=== PATIENT | female | born 1985 | race Caucasian/White ===

== ENCOUNTER 2022-10-29 14:09 | Emergency (ER) | payer MEDICAID, SELFPAY ==
[2022-10-29 14:13] VITALS: BP 152/85; PULSE 98; RESP 24; TEMP 35.8; O2SAT 99; BMI 51.7
--- NOTE | 2022-10-29 14:29 | ED.GENADULT ---
HPI - General Adult General Chief complaint: Dental/Oral/Mouth Injury/Pain Stated complaint: Pain in right cheek bone down to the jaw Time Seen by Provider: 10/29/22 14:11 History of Present Illness HPI narrative: Patient is a 37 year white female has had longstanding tooth pain she has pain in her right upper tooth and it has affected she feels inner cheek as well feels a little bit in her lateral cheek and upper jaw no redness or vehicle swelling. No neck stiffness patient has had difficulty getting transportation get to a dentist. She plans on doing that in the near future Related Data Home Medications Medication Instructions Recorded Confirmed acetaminophen 500 mg tablet 1,000 mg PO Q6H PRN 05/10/22 05/10/22 (Tylenol Extra Strength) ibuprofen 200 mg capsule 600 mg PO Q6H PRN 05/10/22 05/10/22 Previous Rx's Medication Instructions Recorded ketorolac 10 mg tablet 10 mg PO Q8H 2 days #6 tabs 10/29/22 Allergies Allergy/AdvReac Type Severity Reaction Status Date / Time metformin Allergy Gastrointestinal Verified 05/10/22 14:26 Upset Review of Systems Status of ROS: Reports: 6 or more systems reviewed and unremarkable except as noted in History and below [facility] Medical History Abdominal pain Acute medial meniscal injury of knee (09/2016) Anxiety and depression Bronchitis Cellulitis Degeneration of intervertebral disc of lumbar region (06/25/14) 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 Dysfunctional uterine bleeding Gastroesophageal reflux disease without esophagitis (08/28/14) Herniated lumbar intervertebral disc (06/25/14) Hidradenitis suppurativa (12/31/15) Hypertension (08/28/14) Migraine headache Morbid obesity with body mass index (BMI) of 50.0 to 59.9 in adult (10/03/12) Pain of right hip Polycystic ovary syndrome Prepatellar bursitis of right knee Right knee sprain Strain of muscle and tendon of back wall of thorax, subsequent encounter Subcutaneous nodule of abdominal wall Surgical History History of carpal tunnel surgery of left wrist (01/05/16) History of dilation and curettage (2010) History of total right hip replacement (12/08/14) Status post lateral meniscectomy of left knee (10/21/16) Family History Mother Diabetes High blood pressure Maternal Grandmother Diabetes Ovarian cancer Social History Smoking Status: Current every day smoker What tobacco products do you use: cigarettes Smoking packs per day: 0.5 Smoking cigarettes per day: 10.0 Do you use any of these nicotine containing products: None Second hand tobacco smoke exposure: No How often do you have a drink containing alcohol: never AUDIT-C Alcohol total score: 0 Non-prescribed substance use: former substance user Exam Narrative: Exam Narrative: Objective: Mild redness around the right upper posterior tooth, no vehicle cellulitis noted no pharyngeal cellulitis. Neck is supple nontender Const: Vital Signs, click to edit/add: Vital Signs - 24 hr 10/29/22 14:13 Temperature 96.4 F L Pulse Rate [Pulse Oximeter] 98 Respiratory Rate 24 Blood Pressure [Ri t Upper Arm] 152/85 H Pulse Oximetry 99 Oxygen Delivery Me thod Room Air Course Vital Signs Vital signs: Initial Vital Signs Temperature 96.4 F L 10/29/22 14:13 Temperature Source Temporal Artery Scan 10/29/22 14:13 Pulse Rate 98 10/29/22 14:13 Respiratory Rate 24 10/29/22 14:13 Blood Pressure 152/85 H 10/29/22 14:13 Blood Pressure Mean 107 10/29/22 14:13 Pulse Oximetry 99 10/29/22 14:13 Oxygen Delivery Method 10/29/22 14:13 Vital Signs Temperature 96.4 F L 10/29/22 14:13 Pulse Rate 98 10/29/22 14:13 Respiratory Rate 24 10/29/22 14:13 Blood Pressure 152/85 H 10/29/22 14:13 Pulse Oximetry 99 10/29/22 14:13 Oxygen Delivery Method 10/29/22 14:13 Temperature 96.4 F L 10/29/22 14:13 Pulse Rate 98 10/29/22 14:13 Respiratory Rate 24 10/29/22 14:13 Blood Pressure 152/85 H 10/29/22 14:13 Pulse Oximetry 99 10/29/22 14:13 Oxygen Delivery Method 10/29/22 14:13 Medical Decision Making MDM Narrative Medical decision making narrative: Patient has had concerns about her teeth for a good period of time, at this point may have a dental infection, will cover with penicillin Bicillin IM and also Toradol orally. Will give toward some Toradol for home. Rest, light activity warm pack to the cheek, return if problems or concerns. Recommend dental follow-up in the next couple of days Discharge Plan Discharge Clinical Impression: Pain in tooth Patient Disposition: Home, Self-Care Condition: Stable Additional Instructions: Light activity warm pack to the cheek as needed, Toradol as needed, may use Tylenol as well. Do not use Aleve or Advil when using the Toradol. Follow-up with dentist in the next couple of days Activity Level: Light activity Discharge Diet: Regular Prescriptions: New ketorolac 10 mg tablet 10 mg PO Q8H 2 Days Qty: 6 0RF Rx Instructions: To use any ibuprofen or Aleve when using the Toradol No Action ibuprofen 200 mg capsule 600 mg PO Q6H PRN acetaminophen [Tylenol Extra Strength] 500 mg tablet 1,000 mg PO Q6H PRN Follow Up/Referrals: Provider,Not a Local [Primary Care Provider] - Stand Alone Forms: [employer] Info Instructions
[2022-10-29] MEDS: KETOROLAC 10 MG TABLET PO (14:36)
== END 2022-10-29 14:53 | disposition home or self-care (01) ==
LOC: ED 14:35
PROVIDERS: Emergency Provider Family Medicine
DX: K08.89 Other specified disorders of teeth and supporting structures (principal)
CPT/HCPCS: 96372; 99283; A9270; J0558

== ENCOUNTER 2023-05-30 21:52 | Emergency (ER) | payer MEDICAID, SELFPAY ==
[2023-05-30 22:10] VITALS: BP 175/95; PULSE 102; TEMP 36.1; O2SAT 98
[2023-05-30 22:15] VITALS: RESP 20
--- NOTE | 2023-05-30 23:01 | ED.GENADULT ---
HPI - General Adult General Chief complaint: Dental/Oral/Mouth Injury/Pain Stated complaint: Tooth pain Time Seen by Provider: 05/30/23 22:47 History of Present Illness HPI narrative: Broke tooth 1 week ago- right upper tooth, stated today tooth pain 10 and is radiating up in sinus cavity. Took Tylenol and ibuprofen a couple hours ago. Per pt dentist told her something was wrong with her root of tooth 38-year-old woman here with concern of tooth pain. She says that has concerns due to the roots that are growing into her right sinuses as described to her. She is worried she might have an infection there. Aggravated this tooth/cracked about a week ago on the right upper dentition and today just really flared. Radiating up into her right maxillary area. Has not had any fever drainage. Seen for dental issue in October of this year. Related Data Home Medications Medication Instructions Recorded Confirmed acetaminophen 500 mg tablet 1,000 mg PO Q6H PRN 05/10/22 05/10/22 (Tylenol Extra Strength) ibuprofen 200 mg capsule 600 mg PO Q6H PRN 05/10/22 05/10/22 Previous Rx's Medication Instructions Recorded ketorolac 10 mg tablet 10 mg PO Q8H 2 days #6 tabs 10/29/22 Allergies Allergy/AdvReac Type Severity Reaction Status Date / Time metformin Allergy Gastrointestinal Verified 05/30/23 22:14 Upset Review of Systems Status of ROS: Reports: 6 or more systems reviewed and unremarkable except as noted in History and below [facility] Medical History 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 ?M23.301 - Other meniscus derangements, unspecified lateral meniscus, left knee (ICD-10) Subcutaneous nodule of abdominal wall ?R22.2 - Localized swelling, mass and lump, trunk (ICD-10) Prepatellar bursitis of right knee ?M70.41 - Prepatellar bursitis, right knee (ICD-10) Polycystic ovary syndrome ?E28.2 - Polycystic ovarian syndrome (ICD-10) Morbid obesity with body mass index (BMI) of 50.0 to 59.9 in adult (10/03/12) ?E66.01 - Morbid (severe) obesity due to excess calories (ICD-10) ?Z68.43 - Body mass index [BMI] 50.0-59.9, adult (ICD-10) Migraine headache ?G43.909 - Migraine, unspecified, not intractable, without status migrainosus (ICD-10) Hypertension (08/28/14) ?I10 - Essential (primary) hypertension (ICD-10) Hidradenitis suppurativa (12/31/15) ?L73.2 - Hidradenitis suppurativa (ICD-10) Herniated lumbar intervertebral disc (06/25/14) ?M51.26 - Other intervertebral disc displacement, lumbar region (ICD-10) Gastroesophageal reflux disease without esophagitis (08/28/14) ?K21.9 - Gastro-esophageal reflux disease without esophagitis (ICD-10) Dysfunctional uterine bleeding ?N93.8 - Other specified abnormal uterine and vaginal bleeding (ICD-10) Degeneration of intervertebral disc of lumbar region (06/25/14) ?M51.36 - Other intervertebral disc degeneration, lumbar region (ICD-10) Anxiety and depression ?F41.9 - Anxiety disorder, unspecified (ICD-10) ?F32.A - Depression, unspecified (ICD-10) Surgical History History of loop electrical excision procedure (LEEP) ?Z98.890 - Other specified postprocedural states (ICD-10) Status post lateral meniscectomy of left knee (10/21/16) ?Z98.890 - Other specified postprocedural states (ICD-10) History of carpal tunnel surgery of left wrist (01/05/16) ?Z98.890 - Other specified postprocedural states (ICD-10) History of total right hip replacement (12/08/14) ?Z96.641 - Presence of right artificial hip joint (ICD-10) History of dilation and curettage (2010) ?Z98.890 - Other specified postprocedural states (ICD-10) Family History Mother Diabetes High blood pressure Depression Anxiety Maternal Grandmother Diabetes Ovarian cancer Other Pancreatic cancer Skin cancer Social History Narrative: Does not drink alcohol Does not exercise Single, unemployed, no kids Tobacco abuse- 10/day, 20 pack years Smoking Status: Current every day smoker What tobacco products do you use: cigarettes Smoking packs per day: 0.5 Smoking cigarettes per day: 10.0 Do you use any of these nicotine containing products: None Second hand tobacco smoke exposure: No How often do you have a drink containing alcohol: never AUDIT-C Alcohol total score: 0 Non-prescribed substance use: former substance user Exam Narrative: Exam Narrative: Pleasant. Clearly very uncomfortable. Neck is supple without lymphadenopathy. Oropharynx with some dentition in disrepair. Gingival inflammation. Tooth in question number 6 does appear to be cracked with exposed dentin at least, possibly pulp. There is no surrounding focal erythema or swelling. No erythema or swelling of the face. Const: Vital Signs, click to edit/add: Vital Signs - 24 hr 05/30/23 22:10 05/30/23 22:15 Temperature 97 F L Pulse Rate [Pulse Oximeter] 102 H Respiratory Rate 20 Blood Pressure [Ri ght Upper Arm] 175/95 H Pulse Oximetry 98 Oxygen Delivery Me thod Room Air Documenting provider has reviewed patient's vital signs: yes Course Vital Signs Vital signs: Initial Vital Signs Temperature 97 F L 05/30/23 22:10 Temperature Source Temporal Artery Scan 05/30/23 22:10 Pulse Rate 102 H 05/30/23 22:10 Pulse Rhythm Regular 05/30/23 22:10 Blood Pressure 175/95 H 05/30/23 22:10 Blood Pressure Mean 121 H 05/30/23 22:10 Pulse Oximetry 98 05/30/23 22:10 Oxygen Delivery Method Room Air 05/30/23 22:10 Vital Signs Temperature 97 F L 05/30/23 22:10 Pulse Rate 102 H 05/30/23 22:10 Blood Pressure 175/95 H 05/30/23 22:10 Pulse Oximetry 98 05/30/23 22:10 Oxygen Delivery Method Room Air 05/30/23 22:10 Temperature 97 F L 05/30/23 23:56 Pulse Rate 102 H 05/30/23 23:56 Respiratory Rate 20 05/30/23 23:56 Blood Pressure 175/95 H 05/30/23 23:56 Pulse Oximetry 98 05/30/23 22:10 Oxygen Delivery Method Room Air 05/30/23 22:10 Medical Decision Making MDM Narrative Medical decision making narrative: She would love some relief of pain if possible. There may be an infection here though I think more likely it is irritated nerve. Did propose dental injection for more immediate relief of pain which she readily accepted. Did place in alveolar and then buccal block with 1 mL of Marcaine each. Achieved excellent control of tooth pain. Radha was relieved. See patient discharge plan Medical Records Medical records reviewed: Yes I reviewed the patient's medical records Discharge Plan Discharge Clinical Impression: Gingivitis, Dental erosion extending into pulp, Pain, dental Patient Disposition: Home, Self-Care Condition: Improved Additional Instructions: I am happy you're feeling better. Check out at [facility] or maybe another pharmacy whether not they have [employer] products. These can include temporary fillings that you can apply yourself or brush on varnishes that I think will help you with the discomfort. You might be able to buy this online as well. See handout of dental clinics/emergency services. Can take up to 800 mg of ibuprofen or up to 1000 mg of acetaminophen per dose. Alternative to the ibuprofen might be up to 500 mg naproxen 2 times daily. Continue to focus on hydration. Might want to do this with a straw. Doon and penicillin from [facility]. Remember that each tablet of Doon contains 325 mg of acetaminophen. You can take ibuprofen or naproxen with the Doon. Take the penicillin for 8 days Prescriptions: No Action ibuprofen 200 mg capsule 600 mg PO Q6H PRN acetaminophen [Tylenol Extra Strength] 500 mg tablet 1,000 mg PO Q6H PRN ketorolac 10 mg tablet 10 mg PO Q8H 2 Days Qty: 6 0RF Rx Instructions: To use any ibuprofen or Aleve when using the Toradol Follow Up/Referrals: Provider,Not a Local [Primary Care Provider] - Stand Alone Forms: [employer] Info Instructions
[2023-05-30] MEDS: BUPIVACAINE 0.25% 30 ML 5 ML INJECTION (23:20)
[2023-05-30 23:56] VITALS: BP 175/95; PULSE 102; RESP 20; TEMP 36.1
== END 2023-05-30 23:56 | disposition home or self-care (01) ==
PROVIDERS: Emergency Provider Family Medicine
DX: K05.10 Chronic gingivitis, plaque induced (principal); K04.99 Other diseases of pulp and periapical tissues
CPT/HCPCS: 64450; 99283; 99284; J0665

== ENCOUNTER 2023-12-20 05:37 | Emergency (ER) | payer MEDICAID, SELFPAY ==
[2023-12-20 05:43] VITALS: BP 160/98; PULSE 98; RESP 18; TEMP 36.7; O2SAT 97; BMI 45.8
--- NOTE | 2023-12-20 05:51 | ED_ITS ---
HPI - Dental/Oral General Time Seen by Provider: 05:51 Date Seen: 12/20/23 Chief complaint: Dental/Oral/Mouth Injury/Pain Stated complaint: bleeding mouth Time Seen by Provider: 12/20/23 05:51 Source: patient and RN notes reviewed Mode of arrival: ambulatory Limitations: no limitations History of Present Illness HPI Narrative: This 38-year-old female is coming in after she noted bleeding and clots coming from her upper left mouth. She was performing oral sex on her boyfriend when she noted bleeding. She shows me a picture of bloody in on a clot on some tissue. The bleeding has now stopped. She feels that she maybe broke this tooth a little bit more as she is feeling it with her tongue. She states she has had hip replacement, she is worried about sepsis and infection. She is not been to a dentist for quite some time. She has had no baseline fevers or pain. There is maybe now a little discomfort. No blood thinners. Related Data Home Medications Medication Instructions Recorded Confirmed acetaminophen 500 mg tablet 1,000 mg PO Q6H PRN 05/10/22 05/10/22 (Tylenol Extra Strength) ibuprofen 200 mg capsule 600 mg PO Q6H PRN 05/10/22 05/10/22 Previous Rx's Medication Instructions Recorded ketorolac 10 mg tablet 10 mg PO Q8H 2 days #6 tabs 10/29/22 penicillin V potassium 500 mg 500 mg PO TID #21 tabs 12/20/23 tablet Allergies Allergy/AdvReac Type Severity Reaction Status Date / Time metformin Allergy Gastrointestinal Verified 05/30/23 22:14 Upset Review of Systems Narrative: As per HPI. 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 ?M23.301 - Other meniscus derangements, unspecified lateral meniscus, left knee (ICD-10) Subcutaneous nodule of abdominal wall ?R22.2 - Localized swelling, mass and lump, trunk (ICD-10) Prepatellar bursitis of right knee ?M70.41 - Prepatellar bursitis, right knee (ICD-10) Polycystic ovary syndrome ?E28.2 - Polycystic ovarian syndrome (ICD-10) Morbid obesity with body mass index (BMI) of 50.0 to 59.9 in adult (10/03/12) ?E66.01 - Morbid (severe) obesity due to excess calories (ICD-10) ?Z68.43 - Body mass index [BMI] 50.0-59.9, adult (ICD-10) Migraine headache ?G43.909 - Migraine, unspecified, not intractable, without status migrainosus (ICD-10) Hypertension (08/28/14) ?I10 - Essential (primary) hypertension (ICD-10) Hidradenitis suppurativa (12/31/15) ?L73.2 - Hidradenitis suppurativa (ICD-10) Herniated lumbar intervertebral disc (06/25/14) ?M51.26 - Other intervertebral disc displacement, lumbar region (ICD-10) Gastroesophageal reflux disease without esophagitis (08/28/14) ?K21.9 - Gastro-esophageal reflux disease without esophagitis (ICD-10) Dysfunctional uterine bleeding ?N93.8 - Other specified abnormal uterine and vaginal bleeding (ICD-10) Degeneration of intervertebral disc of lumbar region (06/25/14) ?M51.36 - Other intervertebral disc degeneration, lumbar region (ICD-10) Anxiety and depression ?F41.9 - Anxiety disorder, unspecified (ICD-10) ?F32.A - Depression, unspecified (ICD-10) Surgical History History of loop electrical excision procedure (LEEP) ?Z98.890 - Other specified postprocedural states (ICD-10) Status post lateral meniscectomy of left knee (10/21/16) ?Z98.890 - Other specified postprocedural states (ICD-10) History of carpal tunnel surgery of left wrist (01/05/16) ?Z98.890 - Other specified postprocedural states (ICD-10) History of total right hip replacement (12/08/14) ?Z96.641 - Presence of right artificial hip joint (ICD-10) History of dilation and curettage (2010) ?Z98.890 - Other specified postprocedural states (ICD-10) Family History Mother Diabetes High blood pressure Depression Anxiety Maternal Grandmother Diabetes Ovarian cancer Other Pancreatic cancer Skin cancer Social History Narrative: Does not drink alcohol Does not exercise Single, unemployed, no kids Tobacco abuse- 10/day, 20 pack years Smoking Status: Current every day smoker What tobacco products do you use: cigarettes Smoking packs per day: 0.5 Smoking cigarettes per day: 10.0 Do you use any of these nicotine containing products: None Second hand tobacco smoke exposure: No How often do you have a drink containing alcohol: never AUDIT-C Alcohol total score: 0 Non-prescribed substance use: former substance user Exam Const: Vital Signs, click to edit/add: Vital Signs - 24 hr 12/20/23 05:43 Temperature 98.0 F Pulse Rate [Pulse Oximeter] 98 Respiratory Rate 18 Blood Pressure [Le ft Upper Arm] 160/98 H Pulse Oximetry 97 Oxygen Delivery Me thod Room Air Patient is alert, interactive, no apparent distress, very pleasant. Face atraumatic. Lips are normal. Oropharynx reveals normal tongue. She has multiple broken eroded teeth. On the left upper mouth between the molars on the outside aspect there is a clot. There is no active bleeding. It looks like there is erosion into the molar in front. There is no surrounding mucosal changes or erythema or swelling. Documenting provider has reviewed patient's vital signs: yes Course Course ED Course: Patient and I reviewed that there is no apparent infection at this time. Should she start noticing increased swelling or pain, would recommend antibiotic use. She is at risk for dental infections given the eroded in broken nature of her teeth. I will send an antibiotic in for her should she start to develop swelling and pain. If this tooth keeps bleeding, she is going to need to see a dentist. Vital Signs Vital signs: Initial Vital Signs Temperature 98.0 F 12/20/23 05:43 Temperature Source Temporal Artery Scan 12/20/23 05:43 Pulse Rate 98 12/20/23 05:43 Pulse Rhythm Regular 12/20/23 05:43 Respiratory Rate 18 12/20/23 05:43 Blood Pressure 160/98 H 12/20/23 05:43 Blood Pressure Mean 118 H 12/20/23 05:43 Blood Pressure Position Sitting 12/20/23 05:43 Pulse Oximetry 97 05/01/24 05:43 Oxygen Delivery Method Room Air 12/20/23 05:43 Vital Signs Temperature 98.0 F 12/20/23 05:43 Pulse Rate 98 12/20/23 05:43 Respiratory Rate 18 12/20/23 05:43 Blood Pressure 160/98 H 12/20/23 05:43 Pulse Oximetry 97 12/20/23 05:43 Oxygen Delivery Method Room Air 12/20/23 05:43 Temperature 98.0 F 12/20/23 05:43 Pulse Rate 98 12/20/23 05:43 Respiratory Rate 18 12/20/23 05:43 Blood Pressure 160/98 H 12/20/23 05:43 Pulse Oximetry 97 12/20/23 05:43 Oxygen Delivery Method Room Air 12/20/23 05:43 Discharge Plan Discharge Clinical Impression: Bleeding from mouth Patient Disposition: Home, Self-Care Condition: Stable Instructions: Dental Abscess (ED) Additional Instructions: Handout provided on dental abscess for you to review signs and symptoms of this. I have sent an antibiotic to be used should you start having increasing dental pain or swelling around the area as that could signify a dental infection. You really do need to get to a dentist as soon as possible. If this area continues to bleed, you are going to need to see a dentist. I would have you stay on clear liquids for the next 24 hours to give this area of your mouth a chance to heal hence stop bleeding. After that, can do soft foods for the next couple of days. Prescriptions: New penicillin V potassium 500 mg tablet 500 mg PO TID Qty: 21 0RF No Action ibuprofen 200 mg capsule 600 mg PO Q6H PRN acetaminophen [Tylenol Extra Strength] 500 mg tablet 1,000 mg PO Q6H PRN ketorolac 10 mg tablet 10 mg PO Q8H 2 Days Qty: 6 0RF Rx Instructions: To use any ibuprofen or Aleve when using the Toradol Follow Up/Referrals: Provider,Not a Local [Primary Care Provider] - Stand Alone [facility]: [facility] Info Inst[facility]
--- NOTE | 2023-12-20 06:18 | PC.NURSE ---
pt requested a prescription for diflucan also be sent to pharmacy as she tends to get yeast infections with antibiotic use. also encouraged yogurt, probiotics.
== END 2023-12-20 06:18 | disposition home or self-care (01) ==
PROVIDERS: Emergency Provider Family Medicine
DX: K04.7 Periapical abscess without sinus (principal)
CPT/HCPCS: 99282

== ENCOUNTER 2024-03-06 08:34 | Outpatient (CLI) | payer MEDICAID, SELFPAY ==
[2024-03-06 12:01] LABS: Chlamydia DNA Amplified* NOT DETECTED (No Detected); GC DNA Amplified* NOT DETECTED (No Detected)
== END 2024-03-06 08:35 | disposition home or self-care (01) ==
PROVIDERS: Visit Provider Registered Nurse
DX: Z11.3 Encounter for screening for infections with a predominantly sexual mode of transmission (principal)
CPT/HCPCS: 86592; 86701; 86702; 86703; 86803; 87340; 87491; 87536; 87591

== ENCOUNTER 2024-03-28 16:08 | Emergency (ER) | payer MEDICAID, SELFPAY ==
[2024-03-28 16:11] VITALS: BP 154/74; PULSE 91; RESP 18; TEMP 36.4; O2SAT 97; BMI 45.8
--- NOTE | 2024-03-28 16:21 | CRLHL7_ITS ---
For Patients: As a result of the Cures Act, medical imaging exams and procedure reports are released immediately into your electronic medical record. You may view this report before your referring provider. If you have questions, please contact your health care provider. INDICATION: Left leg pelvic hip pain TECHNIQUE: Pelvis radiograph, Hip radiograph 3 views left COMPARISON: 05/10/2022 FINDINGS: Bone: No acute fractures or aggressive bone lesions are identified. Severe degenerative disc disease with vacuum phenomena seen at L4-5. Joint: A right total hip arthroplasty is present without interval change. The left hip joint is unremarkable. The visualized sacroiliac joints are unremarkable in appearance. The pubic symphysis is normal in appearance. Soft tissue: Unremarkable. The visualized bowel gas pattern of the pelvis is unremarkable in appearance. No radiopaque foreign bodies are seen. IMPRESSION: 1. No acute osseous injuries or abnormalities are noted. Dictated by Harinder Morales MD @ 03/28/2024 6:18:17 PM Dictated by: Harinder Morales MD @ 03/28/2024 18:18:24 (Electronically Signed)
--- NOTE | 2024-03-28 16:49 | ED.GENADULT ---
HPI - General Adult General Chief complaint: Extremity Pain/Injury, Lower Stated complaint: can't lift L leg Time Seen by Provider: 03/28/24 16:16 Source: patient Mode of arrival: ambulatory Limitations: no limitations History of Present Illness HPI narrative: 38-year-old female coming in today complaining of left hip pain. Uses the pain started yesterday. She denies any new physical activities. She denies any injury that she is aware of. She states that the pain is located wear the thigh needs to trunk, radiates down the front of the thigh. Does not reach the knee. Movement makes it worse, nothing seems to make it better. She denies any loss of bowel or bladder function. She denies any recent fevers or chills. No vomiting. She denies any back pain. She denies any trauma to the back. She describes it as a shooting pain. Patient states that she had a hip replacement on the right side in the past secondary to the joint being bone on bone. She is concerned that the same thing is happening to the left. 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 ?M23.301 - Other meniscus derangements, unspecified lateral meniscus, left knee (ICD-10) Subcutaneous nodule of abdominal wall ?R22.2 - Localized swelling, mass and lump, trunk (ICD-10) Prepatellar bursitis of right knee ?M70.41 - Prepatellar bursitis, right knee (ICD-10) Polycystic ovary syndrome ?E28.2 - Polycystic ovarian syndrome (ICD-10) Morbid obesity with body mass index (BMI) of 50.0 to 59.9 in adult (10/03/12) ?E66.01 - Morbid (severe) obesity due to excess calories (ICD-10) ?Z68.43 - Body mass index [BMI] 50.0-59.9, adult (ICD-10) Migraine headache ?G43.909 - Migraine, unspecified, not intractable, without status migrainosus (ICD-10) Hypertension (08/28/14) ?I10 - Essential (primary) hypertension (ICD-10) Hidradenitis suppurativa (12/31/15) ?L73.2 - Hidradenitis suppurativa (ICD-10) Herniated lumbar intervertebral disc (06/25/14) ?M51.26 - Other intervertebral disc displacement, lumbar region (ICD-10) Gastroesophageal reflux disease without esophagitis (08/28/14) ?K21.9 - Gastro-esophageal reflux disease without esophagitis (ICD-10) Dysfunctional uterine bleeding ?N93.8 - Other specified abnormal uterine and vaginal bleeding (ICD-10) Degeneration of intervertebral disc of lumbar region (06/25/14) ?M51.36 - Other intervertebral disc degeneration, lumbar region (ICD-10) Anxiety and depression ?F41.9 - Anxiety disorder, unspecified (ICD-10) ?F32.A - Depression, unspecified (ICD-10) Surgical History History of loop electrical excision procedure (LEEP) ?Z98.890 - Other specified postprocedural states (ICD-10) Status post lateral meniscectomy of left knee (10/21/16) ?Z98.890 - Other specified postprocedural states (ICD-10) History of carpal tunnel surgery of left wrist (01/05/16) ?Z98.890 - Other specified postprocedural states (ICD-10) History of total right hip replacement (12/08/14) ?Z96.641 - Presence of right artificial hip joint (ICD-10) History of dilation and curettage (2010) ?Z98.890 - Other specified postprocedural states (ICD-10) Family History Mother Diabetes High blood pressure Depression Anxiety Maternal Grandmother Diabetes Ovarian cancer Other Pancreatic cancer Skin cancer Social History Narrative: Does not drink alcohol Does not exercise Single, unemployed, no kids Tobacco abuse- 10/day, 20 pack years Smoking Status: Current every day smoker What tobacco products do you use: cigarettes Smoking packs per day: 0.5 Smoking cigarettes per day: 10.0 Do you use any of these nicotine containing products: None Second hand tobacco smoke exposure: No How often do you have a drink containing alcohol: never AUDIT-C Alcohol total score: 0 Non-prescribed substance use: former substance user service: No Exam Narrative: Exam Narrative: Obese, well-developed patient in no acute distress. Alert and oriented. Answers questions appropriately. Mood and affect are appropriate. Thoughts are goal oriented and rational. No tangential or magical thinking noted. Patient speaks in full sentences without needing to catch her breath. She does not appear ill or toxic. HEENT: Normocephalic atraumatic. Extraocular muscles are intact. Conjunctivae are moist without any icterus noted. Moist mucous membranes. Abdomen: Soft and nontender with normal bowel sounds. Extremities: Bilateral lower extremities are without edema. Normal DP and PT pulses. Patient has a negative straight leg test. She has some discomfort with any manipulation of the hip joint. No pain at the knee. Skin: Well perfused without any obvious rashes. Strength is 5/5 of the lower extremities. Reflexes are 2+ and symmetric at the knees. She is able to get up and down from the examination table without assistance. Const: Vital Signs, click to edit/add: Vital Signs - 24 hr 03/28/24 16:11 Temperature 97.5 F L Pulse Rate [Right Pulse Oximeter] 91 Respiratory Rate 18 Blood Pressure [Ri ght Forearm] 154/74 H Pulse Oximetry 97 Oxygen Delivery Me thod Room Air Course Course ED Course: Did go ahead and x-ray the left hip given her history: This was unremarkable. Discussed findings with patient. We discussed possibility of a pinched nerve versus musculoskeletal pain. Opted to try a Medrol Dosepak to see if this helps. Patient is agreement with this and had no other questions. Vital Signs Vital signs: Initial Vital Signs Temperature 97.5 F L 03/28/24 16:11 Temperature Source Temporal Artery Scan 03/28/24 16:11 Pulse Rate 91 03/28/24 16:11 Pulse Rhythm Regular 03/28/24 16:11 Pulse Strength 3+ Normal 03/28/24 16:11 Respiratory Rate 18 03/28/24 16:11 Blood Pressure 154/74 H 03/28/24 16:11 Blood Pressure Mean 100 03/28/24 16:11 Blood Pressure Position Sitting 03/28/24 16:11 Pulse Oximetry 97 03/28/24 16:11 Oxygen Delivery Method Room Air 03/28/24 16:11 Vital Signs Temperature 97.5 F L 03/28/24 16:11 Pulse Rate 91 03/28/24 16:11 Respiratory Rate 18 03/28/24 16:11 Blood Pressure 154/74 H 03/28/24 16:11 Pulse Oximetry 97 03/28/24 16:11 Oxygen Delivery Method Room Air 03/28/24 16:11 Temperature 97.5 F L 03/28/24 16:11 Pulse Rate 91 03/28/24 16:11 Respiratory Rate 18 03/28/24 16:11 Blood Pressure 154/74 H 03/28/24 16:11 Pulse Oximetry 97 03/28/24 16:11 Oxygen Delivery Method Room Air 03/28/24 16:11 Medical Decision Making MDM Narrative Medical decision making narrative: 38-year-old female with hip pain radiating down her leg. Treatment per above. Imaging Data xray hip: Attestation: I have reviewed the pertinent imaging results. Radiologist's impression: TECHNIQUE: Pelvis radiograph, Hip radiograph 3 views left COMPARISON: 05/10/2022 FINDINGS: Bone: No acute fractures or aggressive bone lesions are identified. Severe degenerative disc disease with vacuum phenomena seen at L4-5. Joint: A right total hip arthroplasty is present without interval change. The left hip joint is unremarkable. The visualized sacroiliac joints are unremarkable in appearance. The pubic symphysis is normal in appearance. Soft tissue: Unremarkable. The visualized bowel gas pattern of the pelvis is unremarkable in appearance. No radiopaque foreign bodies are seen. IMPRESSION: 1. No acute osseous injuries or abnormalities are noted. Discharge Plan Discharge Clinical Impression: Acute hip pain Patient Disposition: Home, Self-Care Condition: Stable Additional Instructions: Rest, altered activity to avoid activities that hurt the hip. Okay to take ibuprofen or Tylenol as needed/as directed. Prescriptions: New methylprednisolone [Medrol ([facility])] 4 mg tablets,dose pack See Rx Instructions .ROUTE .COMPLEX Qty: 21 0RF Rx Instructions: orally per package directions Follow Up/Referrals: Provider,Not a Local [Primary Care Provider] - Stand Alone Forms: [employer] Info Instructions
== END 2024-03-28 18:43 | disposition home or self-care (01) ==
PROVIDERS: Emergency Provider Family Medicine
DX: M25.552 Pain in left hip (principal)
CPT/HCPCS: 73502; 99283; 99284

== ENCOUNTER 2024-04-04 08:50 | Outpatient (CLI) | payer MEDICAID, SELFPAY | END 2024-04-04 08:51 | disposition home or self-care (01) | PROVIDERS: Visit Provider Registered Nurse | DX: Z00.00 Encounter for general adult medical examination without abnormal findings (principal); E11.40 Type 2 diabetes mellitus with diabetic neuropathy, unspecified; I10 Essential (primary) hypertension; E66.01 Morbid (severe) obesity due to excess calories | CPT/HCPCS: 80053; 84443 ==

== ENCOUNTER 2024-05-04 00:56 | Emergency (ER) | payer MEDICAID, SELFPAY ==
[2024-05-04] VITALS (9 sets, daily range): BP systolic 156; BP diastolic 98; PULSE 95–110; RESP 22; TEMP 35.9; O2SAT 92–98; BMI 47.3
--- NOTE | 2024-05-04 01:16 | ED_ITS ---
HPI - General Adult General Date Seen: 05/04/24 Chief complaint: Post Op Complication Stated complaint: pain in vaginal area Time Seen by Provider: 05/04/24 01:15 History of Present Illness HPI narrative: 39-year-old female with a history of type 2 diabetes, polycystic ovaries, elevated BMI, hypertension, hit retinitis a pretty 5, GERD, lumbar disc disease, vulvar intraepithelial neoplasia, anxiety/depression. Per ER triage note she had a wide local excision of her vulva done by Dr. Adames at [facility] 11 days ago on 04/23. She has been having postop pain that is been getting worse for the past couple of days and has now become unbearable. She has a follow-up scheduled with her surgeon at [facility] on Monday, but cannot make it until then because the pain is too severe. She says that she had a wide local incision of a precancerous lesion on her right labia. Apparently lesion was 2.5 cm diameter and she had additional margins larger than that that were excised. She was told by her doctor by phone call on Monday that they did get clear margins. She notes that for the 1st couple of days after the procedure her labia was not been really not painful. She started having some pain after that. She took all 10 of her prescribed postop oxycodone tablets and ran out probably a week ago. Since then she has actually had progressively worsening pain. The pain is very severe and burning. She notes that her labia has been swollen since the day of the surgery but is actually gotten more swollen. Feels hard. The incision is draining some brownish material. She initially says it is dark, but then she says it is light brown. Nothing green or yellow. No bleeding. She has not had any fever or chills. Urination hurts because when the urine splashes over the incision it causes pain. Bowel movements and defecation are not painful. She had a phone conversation with her gynecology team at [facility] on . She has a 2 week postop visit scheduled for Monday. I am not able to review all of the records from [facility] but I am able to see some of them using the [employer] website. It looks like she had surgery on 04/23. Op notes indicate that she had excision down into dermal tissue and then apparently had the wound closed with mattress sutures and then skin sutures using Vicryl. Related Data Previous Rx's ?Medication ?Instructions ?Recorded albuterol sulfate 90 mcg/actuation 2 puff inhalation Q6H PRN 04/04/24 aerosol inhaler shortness of breath or wheezing #8.5 grams blood pressure kit-extra large #1 ea 04/04/24 losartan 50 mg tablet 50 mg PO QDAY 90 days #90 tabs 04/04/24 amoxicillin 875 mg-potassium 1 tab PO BID PRN #14 tabs 05/04/24 clavulanate 125 mg tablet fluconazole 150 mg tablet 150 mg PO DAILY #1 tab 05/04/24 oxycodone 5 mg capsule 5 mg PO Q6H PRN pain #14 caps 05/04/24 Allergies Allergy/AdvReac Type Severity Reaction Status Date / Time metformin Allergy Gastrointestinal Verified 05/04/24 01:13 Upset [facility] Medical History Type 2 diabetes mellitus ?E11.9 - Type 2 diabetes mellitus without complications (ICD-10) 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 ?M23.301 - Other meniscus derangements, unspecified lateral meniscus, left knee (ICD-10) Subcutaneous nodule of abdominal wall ?R22.2 - Localized swelling, mass and lump, trunk (ICD-10) Prepatellar bursitis of right knee ?M70.41 - Prepatellar bursitis, right knee (ICD-10) Polycystic ovary syndrome ?E28.2 - Polycystic ovarian syndrome (ICD-10) Morbid obesity with body mass index (BMI) of 50.0 to 59.9 in adult (10/03/12) ?E66.01 - Morbid (severe) obesity due to excess calories (ICD-10) ?Z68.43 - Body mass index [BMI] 50.0-59.9, adult (ICD-10) Migraine headache ?G43.909 - Migraine, unspecified, not intractable, without status migrainosus (ICD-10) Hypertension (08/28/14) ?I10 - Essential (primary) hypertension (ICD-10) Hidradenitis suppurativa (12/31/15) ?L73.2 - Hidradenitis suppurativa (ICD-10) Herniated lumbar intervertebral disc (06/25/14) ?M51.26 - Other intervertebral disc displacement, lumbar region (ICD-10) Gastroesophageal reflux disease without esophagitis (08/28/14) ?K21.9 - Gastro-esophageal reflux disease without esophagitis (ICD-10) Dysfunctional uterine bleeding ?N93.8 - Other specified abnormal uterine and vaginal bleeding (ICD-10) Degeneration of intervertebral disc of lumbar region (06/25/14) ?M51.36 - Other intervertebral disc degeneration, lumbar region (ICD-10) Anxiety and depression ?F41.9 - Anxiety disorder, unspecified (ICD-10) ?F32.A - Depression, unspecified (ICD-10) Surgical History History of loop electrical excision procedure (LEEP) ?Z98.890 - Other specified postprocedural states (ICD-10) Status post lateral meniscectomy of left knee (10/21/16) ?Z98.890 - Other specified postprocedural states (ICD-10) History of carpal tunnel surgery of left wrist (01/05/16) ?Z98.890 - Other specified postprocedural states (ICD-10) History of total right hip replacement (12/08/14) ?Z96.641 - Presence of right artificial hip joint (ICD-10) History of dilation and curettage (2010) ?Z98.890 - Other specified postprocedural states (ICD-10) Family History Mother Diabetes High blood pressure Depression Anxiety Maternal Grandmother Diabetes Ovarian cancer Other Pancreatic cancer Skin cancer Social History Narrative: Does not drink alcohol Does not exercise Single, unemployed, no kids Tobacco abuse- 10/day, 20 pack years Smoking Status: Current every day smoker What tobacco products do you use: cigarettes Smoking packs per day: 0.5 Smoking cigarettes per day: 10.0 Do you use any of these nicotine containing products: None Second hand tobacco smoke exposure: No How often do you have a drink containing alcohol: never AUDIT-C Alcohol total score: 0 Non-prescribed substance use: former substance user Caffeine: Yes Little interest or pleasure in doing things: more than half the days Feeling down, depressed, or hopeless: several days service: No Exam Narrative: Exam Narrative: Constitutional: Appears well-developed . Heavyset. Uncomfortable and anxious. Speaking rapidly because of anxiety and pain. Alert. Conversant. Non toxic. HENT: Head: Atraumatic. Nose: Nose normal. Mouth/Throat: Oral mucosa is clear and moist. no trismus. Pharynx normal. Tonsils symmetric. No tonsillar enlargement, erythema, or exudate. Eyes: Conjunctivae normal. EOM normal. Pupils equal, round, and reactive to light. No scleral icterus. Neck: Normal range of motion. Neck supple. No tracheal deviation present. Cardiovascular: Normal rate, regular rhythm. No gallop. No friction rub. No murmur heard. Pulmonary/Chest: Effort normal. No stridor. No respiratory distress. No wheezes. No rales. No rhonchi . Abdominal: Soft. Bowel sounds normal. No distension. No mass. No tenderness. No rebound. No guarding. : Performed with female sludge control attendant. Vulva but generally normal. Labia majora appear normal. We gently retracted her labia majora to visualize her labia minora and vaginal introitus. She does have a postop incision on the right labia minora measuring approximately 5 cm. There appears to be several white Vicryl sutures holding the proximal 1 cm and the distal 2-3 cm and tacked. The central 2 cm appears to be dehisced. There is a roughly 1 x 2 cm oval/alejandrina shaped area of dehisced tissue. The base this is white with either purulent or possibly cauterized tissue or possibly granulation. We did obtain a wound culture from the area. There is a small amount of whitish drainage and a small amount of liquidy drainage on the labia which could be from the wound or could possibly be sweat other material. The right labia minora is very tender to palpation. It is mildly indurated. No palpable fluctuance. No crepitus or gas in the soft tissue. Remainder of the external vulva is normal. Perineum is normal. We did not perform an internal speculum exam. Musculoskeletal: RUE: Normal range of motion. No tenderness. No deformity LUE: Normal range of motion. No tenderness. No deformity RLE: Normal range of motion. No edema. No tenderness. No deformity LLE: Normal range of motion. No edema. No tenderness. No deformity Neurological: Alert and oriented to person, place, and time. Normal strength. CN II-VII intact. No sensory deficit. GCS eye subscore is 4. GCS verbal subscore is 5. GCS motor subscore is 6. Normal coordination Skin: Skin is warm and dry. No rash noted. No pallor. Normal capillary refill. Psychiatric: Normal mood. anxious due to pain. Very apprehensive for pelvic exam. Const: Vital Signs, click to edit/add: Vital Signs - 24 hr 05/04/24 01:00 05/04/24 02:36 05/04/24 02:47 Temperature 96.6 F L Pulse Rate 102 H 104 H Pulse Rate [Pulse Oximeter] 107 H Respiratory Rate 22 Blood Pressure [Ri ght Upper Arm] 156/98 H Pulse Oximetry 98 92 96 Oxygen Delivery Me thod Room Air 05/04/24 03:00 05/04/24 03:15 05/04/24 03:20 Temperature Pulse Rate 95 101 H 99 Pulse Rate [Pulse Oximeter] Respiratory Rate Blood Pressure [Ri ght Upper Arm] Pulse Oximetry 96 97 96 Oxygen Delivery Me thod 05/04/24 03:30 05/04/24 03:35 Temperature Pulse Rate 100 110 H Pulse Rate [Pulse Oximeter] Respiratory Rate Blood Pressure [Ri ght Upper Arm] Pulse Oximetry 96 95 Oxygen Delivery Me thod Room Air Course Vital Signs Vital signs: Initial Vital Signs Temperature 96.6 F L 05/04/24 01:00 Temperature Source Temporal Artery Scan 05/04/24 01:00 Pulse Rate 107 H 05/04/24 01:00 Respiratory Rate 05/04/24 01:00 Blood Pressure 156/98 H 05/04/24 01:00 Blood Pressure Mean 117 H 05/04/24 01:00 Blood Pressure Position Sitting 05/04/24 01:00 Pulse Oximetry 98 05/04/24 01:00 Oxygen Delivery Method Room Air 05/04/24 01:00 Vital Signs Temperature 96.6 F L 05/04/24 01:00 Pulse Rate 107 H 05/04/24 01:00 Respiratory Rate 22 05/04/24 01:00 Blood Pressure 156/98 H 05/04/24 01:00 Pulse Oximetry 98 05/04/24 01:00 Oxygen Delivery Method Room Air 05/04/24 01:00 Temperature 96.6 F L 05/04/24 01:00 Pulse Rate 110 H 05/04/24 03:35 Respiratory Rate 22 05/04/24 01:00 Blood Pressure 156/98 H 05/04/24 01:00 Pulse Oximetry 95 05/04/24 03:35 Oxygen Delivery Method Room Air 05/04/24 03:35 Medications Administered Medications: Generic Name Dose Route Start Last Admin Trade Name Freq PRN Reason Stop Dose Admin Fentanyl 50 mcg 05/04/24 01:48 05/04/24 02:24 Fentanyl 100 Mcg/2 Ml Inj IVP 05/04/24 01:49 50 mcg ONCE ONE Administration Lidocaine HCl 6 ml 05/04/24 01:49 05/04/24 02:24 Lidocaine Hcl 2 % Jelly (Top) Sterile TOPICAL 05/04/24 01:50 6 ml ONCE ONE Administration Midazolam HCl 1 mg 05/04/24 02:20 05/04/24 02:24 Midazolam Hcl 1 Mg/Ml Inj IVP 05/04/24 02:21 1 mg ONCE ONE Administration Discontinued Medications Generic Name Dose Route Start Last Admin Trade Name Freq PRN Reason Stop Dose Admin Midazolam HCl 1 mg 05/04/24 01:48 05/04/24 02:25 Midazolam Hcl 1 Mg/Ml Inj IM 05/04/24 01:49 Not Given ONCE ONE Medical Decision Making MDM Narrative Medical decision making narrative: 39-year-old female who is 10 days status post a wide local excision of a lesion from her lower right labia minora (apparently was precancerous, or possibly cancerous with clear margins) presenting to the ER today with a 5-7 day pattern of progressively worsening severe burning pain at the incision site. Differential is broad including possible wound infection, dehiscence, hematoma, other vaginal trauma, Cassi's, cellulitis, ingrown hair or skin abscess, among others. She was quite uncomfortable and anxious at presentation but after receiving fentanyl and Versed we were able to get a good external pelvic exam Clinical evaluation shows evidence for wound dehiscence. This affects the central 2 cm of the patient's wound, approximately. The top and bottom ends of the incision have been sutured and it appears that the sutures are holding together. The dehisced portion of the wound has a lot of adherent whitish material in the base which could be granulation tissue from healing or could represent possible infection. There is a little bit of induration of the right labia, which could also be infection or part of healing. I do not appreciate any palpable fluctuance and gentle pressure around the wound does not create any expression of pus through the dehisced wound. At this point no evidence for abscess. Also no evidence for any necrotizing infection or Cassi's gangrene at this point. Patient is afebrile. Discussed with the on-call manager state from [facility], Dr. Abraham, at approximately 3:00 a.m.. We discussed the patient's recent surgery, progressively worsening pain, and exam findings. He agrees with our plan to start the patient on antibiotics. She will need close outpatient follow-up with typically if the wound dehisce is, the surgeons would allow it to heal by secondary intention rather than reclosed it. She does not need transfer to [facility] for re-evaluation tonight. Discussed the plan of care with the patient and she is in agreement. Pain is improved (but of course not resolved) after meds given here in the ER. She feels comfortable discharging home. Initial plan was to give [facility] prescriptions for Augmentin and oxycodone. However she was not able to fill these prescriptions through in few meds for insurance reasons. Therefore we will send prescriptions to her pharmacy. She has been having trouble with [facility] lately so wants to switch. We sent prescriptions to [place] [facility] for oxycodone, Augmentin. Patient also reports that she gets yeast infections from any antibiotic. Will send a prescription for fluconazole that she can have p.r.n.. She will 0 up with her surgeons at [facility] on Monday. She will return to the ER or see her surgeons immediately if she has any worsening in her condition. Discharge Plan Discharge Clinical Impression: Dehiscence of wound, Cellulitis of labia Patient Disposition: Home, Self-Care Condition: Stable Instructions: Cellulitis (ED), Sitz Bath (DC) Additional Instructions: As we discussed, it looks like part of your incision has broken open. There may also be an infection or on the wound. Take the following steps: 1. Start on antibiotics tonight to treat for a possible infection around the wound. 2. Continue to do wound care and cleansing the wound 2-3 times per day. Soaking in the bath of would be effective. She can also rinse it with a shower. 3. Use the pain killers if needed for pain. Be careful with oxycodone because it causes dizziness, drowsiness, and can be addictive. 4. Please follow-up with her doctors at [facility] by Monday for a repeat examination. If your pain gets worse, if you have worsening swelling of your vulva or your wound, if you have fever or chills or other worsening symptoms, please come back to the ER right away. If you developed a yeast infection from the antibiotics, you can take fluconazole. I sent a prescription for this antifungal medication to [facility] for you to have if needed. Prescriptions: New fluconazole 150 mg tablet 150 mg PO DAILY Qty: 1 0RF amoxicillin-pot clavulanate 875-125 mg tablet 1 tab PO BID PRNQty: 14 0RF oxycodone 5 mg capsule 5 mg PO Q6H PRN (Reason: pain) Qty: 14 0RF No Action losartan 50 mg tablet 50 mg PO QDAY 90 Days Qty: 90 1RF (DME) blood pressure kit-extra large Kit See Rx Instructions .Route Qty: 1 0RF Rx Instructions: Please check blood pressure 3-4 times per week; or if you ever feel lightheaded or dizzy after starting new blood pressure medication. albuterol sulfate 90 mcg/actuation HFA aerosol inhaler 2 puff inhalation Q6H PRN (Reason: shortness of breath or wheezing) Qty: 8.5 1RF Follow Up/Referrals: Lina Lau, GENERAL SURGERY PHYSICIAN ASSISTANT [Primary Care Provider] - Stand Alone Forms: [employer] Info Instructions
[2024-05-04] MEDS: MIDAZOLAM HCL 1 MG/ML inj IVP (02:24)
[2024-05-04] MEDS: lidocaine HCL 2 % JELLY (TOP) STERILE 6 ML TOPICAL (02:24)
[2024-05-04] MEDS: fentaNYL 100 MCG/2 ML inj 50 MCG IVP (02:24)
== END 2024-05-04 04:13 | disposition home or self-care (01) ==
PROVIDERS: Emergency Provider Emergency Medicine; PCP Registered Nurse
DX: T81.30XA Disruption of wound, unspecified, initial encounter (principal); N76.2 Acute vulvitis
CPT/HCPCS: 87070; 87186; 94761; 96372; 96374; 99283; 99284; J2250; J3010

== ENCOUNTER 2024-06-11 07:32 | Emergency (ER) | payer MEDICAID, SELFPAY ==
[2024-06-11 07:37] VITALS: BP 167/106; PULSE 93; RESP 18; TEMP 36.6; O2SAT 98; BMI 47.3
--- NOTE | 2024-06-11 08:20 | ED.DENTAL ---
HPI - Dental/Oral General Date Seen: 06/11/24 Chief complaint: Dental/Oral/Mouth Injury/Pain Stated complaint: thinks tooth abscess face swollen Time Seen by Provider: 06/11/24 08:04 Source: patient Mode of arrival: ambulatory Limitations: no limitations History of Present Illness HPI Narrative: Patient is a 39-year-old female presenting for left facial swelling and dental pain. She has diffuse dental caries and states she has been unable to get her dentist because her car broke down and her dentist is in [place]. She has been dealing with these teeth issues for the past 6 months. She states she started having worsening pain last night with some swelling of the nose today the swelling was much worse. She is concerned she has an infection. Denies shortness of breath, difficulty swallowing, trismus. Denies any sensation of swelling underneath her tongue. Denies fevers or chills. No other concerns noted. Related Data Previous Rx's ?Medication ?Instructions ?Recorded albuterol sulfate 90 mcg/actuation 2 puff inhalation Q6H PRN 04/04/24 aerosol inhaler shortness of breath or wheezing #8.5 grams blood pressure kit-extra large #1 ea 04/04/24 losartan 50 mg tablet 50 mg PO QDAY 90 days #90 tabs 04/04/24 amoxicillin 875 mg-potassium 1 tab PO BID PRN #14 tabs 05/04/24 clavulanate 125 mg tablet fluconazole 150 mg tablet 150 mg PO DAILY #1 tab 05/04/24 oxycodone 5 mg capsule 5 mg PO Q6H PRN pain #14 caps 05/04/24 amoxicillin 875 mg-potassium 1 tab PO BID #14 tabs 06/11/24 clavulanate 125 mg tablet fluconazole 100 mg tablet 150 mg (1.5 x 100 mg) PO DAILY 06/11/24 (Diflucan) #1.5 tabs ketorolac 10 mg tablet 10 mg PO Q6H PRN pain #20 tabs 06/11/24 Allergies Allergy/AdvReac Type Severity Reaction Status Date / Time metformin Allergy Gastrointestinal Verified 05/04/24 01:13 Upset Review of Systems Narrative: Pertinent systems reviewed and were negative unless stated in HPI PFSH PFSH Medical History Type 2 diabetes mellitus ?E11.9 - Type 2 diabetes mellitus without complications (ICD-10) 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 ?M23.301 - Other meniscus derangements, unspecified lateral meniscus, left knee (ICD-10) Subcutaneous nodule of abdominal wall ?R22.2 - Localized swelling, mass and lump, trunk (ICD-10) Prepatellar bursitis of right knee ?M70.41 - Prepatellar bursitis, right knee (ICD-10) Polycystic ovary syndrome ?E28.2 - Polycystic ovarian syndrome (ICD-10) Morbid obesity with body mass index (BMI) of 50.0 to 59.9 in adult (10/03/12) ?E66.01 - Morbid (severe) obesity due to excess calories (ICD-10) ?Z68.43 - Body mass index [BMI] 50.0-59.9, adult (ICD-10) Migraine headache ?G43.909 - Migraine, unspecified, not intractable, without status migrainosus (ICD-10) Hypertension (08/28/14) ?I10 - Essential (primary) hypertension (ICD-10) Hidradenitis suppurativa (12/31/15) ?L73.2 - Hidradenitis suppurativa (ICD-10) Herniated lumbar intervertebral disc (06/25/14) ?M51.26 - Other intervertebral disc displacement, lumbar region (ICD-10) Gastroesophageal reflux disease without esophagitis (08/28/14) ?K21.9 - Gastro-esophageal reflux disease without esophagitis (ICD-10) Dysfunctional uterine bleeding ?N93.8 - Other specified abnormal uterine and vaginal bleeding (ICD-10) Degeneration of intervertebral disc of lumbar region (06/25/14) ?M51.36 - Other intervertebral disc degeneration, lumbar region (ICD-10) Anxiety and depression ?F41.9 - Anxiety disorder, unspecified (ICD-10) ?F32.A - Depression, unspecified (ICD-10) Surgical History History of loop electrical excision procedure (LEEP) ?Z98.890 - Other specified postprocedural states (ICD-10) Status post lateral meniscectomy of left knee (10/21/16) ?Z98.890 - Other specified postprocedural states (ICD-10) History of carpal tunnel surgery of left wrist (01/05/16) ?Z98.890 - Other specified postprocedural states (ICD-10) History of total right hip replacement (12/08/14) ?Z96.641 - Presence of right artificial hip joint (ICD-10) History of dilation and curettage (2010) ?Z98.890 - Other specified postprocedural states (ICD-10) Family History Mother Diabetes High blood pressure Depression Anxiety Maternal Grandmother Diabetes Ovarian cancer Other Pancreatic cancer Skin cancer Social History Narrative: Does not drink alcohol Does not exercise Single, unemployed, no kids Tobacco abuse- 10/day, 20 pack years Smoking Status: Current every day smoker What tobacco products do you use: cigarettes Smoking packs per day: 0.5 Smoking cigarettes per day: 10.0 Do you use any of these nicotine containing products: None Second hand tobacco smoke exposure: No How often do you have a drink containing alcohol: never AUDIT-C Alcohol total score: 0 Non-prescribed substance use: former substance user Caffeine: Yes Little interest or pleasure in doing things: more than half the days Feeling down, depressed, or hopeless: several days service: No Exam Narrative: Exam Narrative: Const: Well-nourished, Well-developed, in mild distress Eyes: PERRL, no conjunctival injection, and symmetrical lids HENT: Atraumatic external nose and ears. Moist mucous membranes. Diffuse dental caries tenderness noted to the left upper teeth and gums Neck: Symmetric, trachea midline, No thyromegaly. MSK:Extremities w/o deformity, Normal Active ROM Skin: Warm, Dry. No rashes or lesions. Neuro: Normal Muscle tone, No focal neurological deficits. Psych: Awake, Alert, & Oriented x3. Appropriate mood and affect. Const: Vital Signs, click to edit/add: Vital Signs - 24 hr 06/11/24 07:37 Temperature 97.8 F Pulse Rate [Right Pulse Oximeter] 93 Respiratory Rate 18 Blood Pressure [Ri ght Upper Arm] 167/106 H Pulse Oximetry 98 Oxygen Delivery Me thod Room Air Course Vital Signs Vital signs: Initial Vital Signs Temperature 97.8 F 10/22/24 07:37 Temperature Source Temporal Artery Scan 06/11/24 07:37 Pulse Rate 93 06/11/24 07:37 Respiratory Rate 18 06/11/24 07:37 Blood Pressure 167/106 H 06/11/24 07:37 Blood Pressure Mean 126 H 06/11/24 07:37 Blood Pressure Position Sitting 06/11/24 07:37 Pulse Oximetry 98 06/11/24 07:37 Oxygen Delivery Method Room Air 06/11/24 07:37 Vital Signs Temperature 97.8 F 06/11/24 07:37 Pulse Rate 93 06/11/24 07:37 Respiratory Rate 18 06/11/24 07:37 Blood Pressure 167/106 H 06/11/24 07:37 Pulse Oximetry 98 06/11/24 07:37 Oxygen Delivery Method Room Air 06/11/24 07:37 Temperature 97.8 F 06/11/24 07:37 Pulse Rate 93 06/11/24 07:37 Respiratory Rate 18 06/11/24 07:37 Blood Pressure 167/106 H 06/11/24 07:37 Pulse Oximetry 98 06/11/24 07:37 Oxygen Delivery Method Room Air 06/11/24 07:37 Medications Administered Medications: Generic Name Dose Route Start Last Admin Trade Name Freq PRN Reason Stop Dose Admin Oxycodone HCl 5 mg 06/11/24 08:19 06/11/24 08:25 Oxycodone 5 Mg Tablet PO 06/11/24 08:20 5 mg ONCE ONE Administration MDM - Dental/Oral MDM Narrative Medical decision making narrative: Patient is a 39-year-old female presenting for dental pain. No signs of Franky angina at this time. She does have quite a bit of swelling but do not believe imaging is necessary. I did order her 1 oxycodone to try get have the pain and will prescribe her Toradol and antibiotics. She is agreeable to this plan. I gave her strict return precautions for if she has difficulty breathing, notices swelling underneath her tongue or develops any worsening symptoms. She states she understands. Patient states she always gets a yeast infection when she is on antibiotics I will give her 1 preventative dose of Diflucan. Discharge Plan Discharge Clinical Impression: Dental caries Patient Disposition: Home, Self-Care Condition: Stable Instructions: Tooth Extraction (DC) Additional Instructions: Take the antibiotics as directed. Also use Toradol as directed. He does take Tylenol with the Toradol. Is important you take this and the Tylenol on a schedule to stay ahead of the pain. Do not take other NSAIDs while you are taking Toradol. Follow-up with your dentist. If he started developing difficulty breathing, noticed swelling underneath your tongue, or developed any other new or worsening symptoms return to the emergency department for re-evaluation Prescriptions: New ketorolac 10 mg tablet 10 mg PO Q6H PRN (Reason: pain) Qty: 20 0RF Rx Instructions: maximum total duration of 5 days from all oral, intranasal, or parenteral formulations amoxicillin-pot clavulanate 875-125 mg tablet 1 tab PO BID Qty: 14 0RF fluconazole [Diflucan] 100 mg tablet 150 mg PO DAILY Qty: 1.5 0RF No Action losartan 50 mg tablet 50 mg PO QDAY 90 Days Qty: 90 1RF (DME) blood pressure kit-extra large Kit See Rx Instructions .Route Qty: 1 0RF Rx Instructions: Please check blood pressure 3-4 times per week; or if you ever feel lightheaded or dizzy after starting new blood pressure medication. albuterol sulfate 90 mcg/actuation HFA aerosol inhaler 2 puff inhalation Q6H PRN (Reason: shortness of breath or wheezing) Qty: 8.5 1RF fluconazole 150 mg tablet 150 mg PO DAILY Qty: 1 0RF amoxicillin-pot clavulanate 875-125 mg tablet 1 tab PO BID PRNQty: 14 0RF oxycodone 5 mg capsule 5 mg PO Q6H PRN (Reason: pain) Qty: 14 0RF Follow Up/Referrals: Lina Lau, [employer] EXECUTIVE [Primary Care Provider] - Stand Alone Forms: [employer] Info Instructions
[2024-06-11] MEDS: OXYCODONE 5 MG TABLET PO (08:25)
== END 2024-06-11 08:43 | disposition home or self-care (01) ==
LOC: ED 08:30
PROVIDERS: Emergency Provider Student in an Organized Health Care Education/Training Program; PCP Registered Nurse
DX: K02.9 Dental caries, unspecified (principal)
CPT/HCPCS: 99282; 99283; A9270

== ENCOUNTER 2024-06-26 16:06 | Outpatient (CLI) | payer MEDICAID, SELFPAY | END 2024-06-26 16:07 | disposition home or self-care (01) | PROVIDERS: PCP Registered Nurse; Visit Provider Registered Nurse | DX: E11.40 Type 2 diabetes mellitus with diabetic neuropathy, unspecified (principal); I10 Essential (primary) hypertension; R20.2 Paresthesia of skin; Z13.21 Encounter for screening for nutritional disorder | CPT/HCPCS: 80053; 80061; 82043; 82306; 82570; 82607 ==

== ENCOUNTER 2024-09-30 16:08 | Outpatient (CLI) | payer MEDICAID, SELFPAY | END 2024-09-30 16:09 | disposition home or self-care (01) | LOC: NFLDREF 10-04 03:01 | PROVIDERS: PCP Registered Nurse; Referring Provider Registered Nurse; Visit Provider Registered Nurse | DX: E11.40 Type 2 diabetes mellitus with diabetic neuropathy, unspecified (principal) | CPT/HCPCS: 82043; 82570 ==

== ENCOUNTER 2024-10-14 08:00 | Outpatient (RCR) | payer MEDICAID, SELFPAY ==
--- NOTE | 2024-10-09 08:18 | PT.OPE ---
PT [place] Outpatient Eval [facility] Outpatient Eval Start: 10/08/24 10:10 Freq: Status: Active Protocol: Document 10/08/24 10:11 ENM (Rec: 10/08/24 15:40 ENM [id number]) E-signed By Olga Richardson, DPT Physical Therapy Outpatient Evaluation Insurance Information Recert Due Date 01/06/25 Insurance Name Medicaid,are Insurance Information/Comments [facility] medicaid plan Medical Diagnosis strain of muscles and tendons of the rotator cuff of right shoulder, initial encounter strain of muscle, fascia and tendon of other parts of biceps, right arm, initial encounter Treating Diagnosis right shoulder pain, decreased shoulder ROM, muscle weakness , impaired ADLs Imaging Report Information MRI of the right shoulder dated 09/27/2024 from [facility], shows the following : Medial dislocation long head of the biceps tendon onto the lesser tuberosity out of the bicipital groove. High-grade tearing of long head of the biceps tendon- although difficult to clearly assess given suboptimal signal to noise due to patient body habitus and motion artifact. Suspected ill-defined low grade partial-thickness tear subscapularis superior aspect along with mild atrophy of the subscapularis, but again suboptimal clarity due to patient body habitus and motion artifact. Mild supraspinatus tendinopathy without apparent atrophy. Interstitial type partial tear posterior aspect infraspinatus again not clearly visualized. No appreciable labral tearing, loose bodies, or full- thickness cartilage defects. Referring MD Yeh Subjective Subjective Patient presents to PT for complaint of right shoulder pain. The pain started months ago with a gradual pain and strain. Would notice it the most with pushing self out of bed. She was doing something above her head she heard a pop in the arm. Since then the shoulder is becoming more strenuous to use for daily activities. 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 They can't lift more than 1-2 pounds before they feel it in the biceps. Pulling their pants up is an issue. Sleeping at night is getting worse. They are confused about what is going on with the shoulder. 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 Painful when performing actively and passively Functional Test Performed & Score SPADI: pain 35/50 disability 68/80 total 103/150 Assessment Assessment/Impression Patient is a 39 year old female presenting with right shoulder pains that started a few months ago. They had been feeling a strain then heard a pop in the shoulder. Since then severity of pain and degree of weakness has continued to worsen. MRI showed medial dislocation long head of the biceps tendon, high-grade tearing of long head of the biceps tendon and subscapularis low grade partial-thickness tear. Symptoms are limiting all of her functional and work activities. Upon assessment patients concordant pains brought on with all shoulder AROM, forearm supination and resistance testing of shoulder . Shoulder ROM is most limited into abduction, ER and IR. Patient displays greater weakness in right shoulder internal rotators compared to external rotators. They are tender to palpation along biceps and tendon as well as deltoid and pec. Symptoms consistent with biceps tendon and rotator cuff tear. Radha would greatly benefit from skilled PT to address impairments stated above for improved ability to perform self cares, ADLs and work duties. Primary Functional Limitations all active movement of right arm, lifting Plan of Care Rehabilitation Potential Fair Rehabilitation Potential Comments Due to severity of pain and degree of tearing seen on MRI Physical Therapy Goals In 10 visits: 1. Patient will be IND with HEP and self management of symptoms 2. Patient will improve right shoulder internal and external rotation to WFL comparable to contralateral side for improved ability to perform all self cares and ADLS 3. Patient will improve global shoulder strength to at least 4-/5 for improved ability to perform lifting activities 4. Patient will be able to make it through the work day with 4/10 or less shoulder pain to demonstrate improvements in work tolerance 5. Patient will improve SPADI from 103 to 90 (MDC 13) to demonstrate improvements in QOL 6. Patient will be able to comfortably lay at night for improved sleep hygiene Coordination/Communication With Referral Source Treatment Plan/Direct Interventions Dry Needling,Electrical Stimulation,Heat,Ice/Cold/ Vasopneumatic,Joint Mobilization,Manual Therapy, Neuromuscular Re-ed,Self-Care/ Home Management,Therapeutic Activities,Therapeutic Exercises Frequency/Duration 1x a week for 8-10 visits Patient Will Be Discharged From Therapy Completion of LTG(s), Independent w/HEP Evaluation Billing Untimed Code Treatment Minutes 24 Complexity Moderate Certification Information Initial Certification Date 10/08/24 Ending Certification Date 01/06/25 Provider Signature Required Yes Provider Signature Shows Agreement With POC & Medical Necessity Physician NPI Number Write NPI# Here Physician Comment/Change : Physician Signature & Date Requested Please Sign/Date Here
== END 2025-02-11 23:59 | disposition home or self-care (01) ==
PROVIDERS: PCP Registered Nurse; Visit Provider Orthopaedic Surgery Sports Medicine
DX: S46.011D Strain of muscle(s) and tendon(s) of the rotator cuff of right shoulder, subsequent encounter (principal); S46.211D Strain of muscle, fascia and tendon of other parts of biceps, right arm, subsequent encounter; Z51.89 Encounter for other specified aftercare
CPT/HCPCS: 97110; 97140; 97162

== ENCOUNTER 2025-01-15 16:23 | Outpatient (CLI) | payer MEDICAID, SELFPAY ==
[2025-01-15 17:48] LABS: C Reactive Protein* 0.5 mg/dL (0.5-1.0)
[2025-01-15 18:19] LABS: Erythrocyte SedimentationRate* 23 mm/hr (2-20)
== END 2025-01-15 16:24 | disposition home or self-care (01) ==
LOC: NPINS 16:25
PROVIDERS: PCP Registered Nurse; Visit Provider Orthopaedic Surgery
DX: M25.559 Pain in unspecified hip (principal)
CPT/HCPCS: 82495; 83018; 85651; 86140

== ENCOUNTER 2025-02-19 10:40 | Outpatient (CLI) | payer MEDICAID, SELFPAY | END 2025-02-19 10:41 | disposition home or self-care (01) | PROVIDERS: PCP Family Medicine; Visit Provider Family Medicine | DX: E78.5 Hyperlipidemia, unspecified (principal); I10 Essential (primary) hypertension; E11.40 Type 2 diabetes mellitus with diabetic neuropathy, unspecified; E28.2 Polycystic ovarian syndrome; E66.01 Morbid (severe) obesity due to excess calories; E55.9 Vitamin D deficiency, unspecified | CPT/HCPCS: 80053; 80061; 82043; 82306; 82570 ==

== ENCOUNTER 2025-04-09 23:26 | Emergency (ER) | payer MEDICAID, SELFPAY ==
--- OUTSIDE RECORDS SUMMARY | 2025-03-24 15:30 | XMS_ITS | Encounter Summary ---
Author Organization [facility] Address [address] [place] [id number] Care Team Providers Care Orchid Transplanter Name Role Phone None Reported, Pcp Primary Care Provider Unavail able Reason for Visit * Appointment Request (Routine) - Authorized Specialty Diagnoses / Procedures Referred By Gertrude sanders Referred To Contact Gynecology Referral ID Status Reason Start Date Expiration Date V isits Requested Visits Authorized [id number] Authorized 01/27/2025 04/29/2026 1 1 Encounter Details Date Type Department Care Team (Latest Contact Info) Description 03/24/2025 3:30 PM CDT Clinical Communication Virtual Review in [place], [place] [address] [place] [address] Social History Tobacco Use Types Packs/Day Years Used Date Smoking Tobacco: Every Day Cigarettes 0.3 27 Started: 08/21/1998 Smokeless Tobacco: Never Tobacco Cessation:Ready to Q uit: Not Asked; Counseling Given: Not Answered Alcohol Use Standard Drinks/Week Comments Not Currently 0 (1 standard drink = 0.6 oz pur e alcohol) occasional C Utilities Answer Date Recorded In the past 12 months has th e [employer], gas, oil, or water [email or web address] threatened to shut off services in your home? No 03/27/2024 Hunger Vital Sign Answer Date Recorded Within the past 12 months, y ou worried that your food would run out before you got the money to buy more. Often true 03/27/20 24 Within the past 12 months, t he food you bought just didn't last and you didn't have money to get more. Often true 03/27/2024 PRAPARE - Transportation Answer Date Re corded In the past 12 months, has l ack of transportation kept you from medical appointments or from getting medications? Yes 02/2024 In the past 12 months, has l ack of transportation kept you from meetings, work, or from getting things needed for daily living? Yes 03/27/2024 Depression Answer Date Recor ded PHQ-9 Total Score (max 27) 22 02/02 Housing Stability Answer Date Recorded What is your living situation today? 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 [address] [place] [phone] documented as of this encounter Visit Diagnoses Not on filedocumented in this encounter Additional Health Concerns Assessment Noted Time PHQ-9 Depression Total Score: 22 020 10:35 AM CDT documented as of this encounter Care Teams Orchid Transplanter Relationship Specialty Start Date End Date None Reported, Pcp PCP - General 02/27/23 documented as of this encounter
--- OUTSIDE RECORDS SUMMARY | 2025-03-24 15:30 | XMS_ITS | Encounter Summary ---
Author Organization [facility] Address [address] [place] [id number] Care Team Providers Care Mercerizing Range Controller Name Role Phone None Reported, Pcp Primary Care Provider Unavail able Reason for Visit * Appointment Request (Routine) - Authorized Specialty Diagnoses / Procedures Referred By Gertrude sanders Referred To Contact Gynecology Referral ID Status Reason Start Date Expiration Date V isits Requested Visits Authorized [id number] Authorized 01/27/2025 04/29/2026 1 1 Encounter Details Date Type Department Care Team (Latest Contact Info) Description 03/24/2025 3:30 PM CDT Clinical Communication Virtual Review in [place], [place] [address] [place] [address] Social History Tobacco Use Types Packs/Day Years Used Date Smoking Tobacco: Every Day Cigarettes 0.3 27 Started: 08/21/1998 Smokeless Tobacco: Never Tobacco Cessation:Ready to Q uit: Not Asked; Counseling Given: Not Answered Alcohol Use Standard Drinks/Week Comments Not Currently 0 (1 standard drink = 0.6 oz pur e alcohol) occasional C Utilities Answer Date Recorded In the past 12 months has th e [employer], gas, oil, or water [employer] threatened to shut off services in your [...] PM CDT 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 [address] [place] [phone] documented as of this encounter Visit Diagnoses Not on filedocumented in this encounter Additional Health Concerns Assessment Noted Time PHQ-9 Depression Total Score: 22 020 10:35 AM CDT documented as of this encounter Care Teams Mercerizing Range Controller Relationship Specialty Start Date End Date None Reported, Pcp PCP - General 02/27/23 documented as of this encounter
--- OUTSIDE RECORDS SUMMARY | 2025-03-26 14:30 | XMS_ITS | Encounter Summary ---
Author Organization [facility] Address [address] [place] [address] Care Team Providers Care Paint Roller Cover Machine Setter Name Role Phone None Reported, Pcp Primary Care Provider Unavail able Reason for Referral * Outpatient (Routine) - Authorized Specialty Diagnoses / Procedures Referred By Contac t Referred To Contact Obstetrics and Gynecology Diagnoses Polycystic Ovary Syndrome Emily Giron APRN, C.N.P., D.N.P. [address] [place] [phone] Phone: tel: fax: [facility] Referral ID Status Reason Start Date Expiration Date V isits Requested Visits Authorized [id number] Authorized 03/26/2025 09/25/2026 1 1 Scheduling Instructions With Natalee Lara Reason for Visit * Outpatient (Routine) - Closed Specialty Diagnoses / Procedures Referred By Contac t Referred To Contact Obstetrics and Gynecology Diagnoses Menometrorrhagia Natalee Huang APRN, C.N.P. [address] [place] [phone] Phone: tel: fax: [facility] Referral ID Status Reason Start Date Expiration Date Visits Re quested Visits Authorized [id number] Closed 01/23/2025 07/25/2026 1 1 Encounter Details Date Type Department Care Team (Latest Contact Info) Description 03/26/2025 2:30 PM CDT Comprehensive Visit Department of Obstetrics and Gynecology in [place], [place] [address] [place] [address] Emily Giron APRN, C.N.P., D.N.P. 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 - 03/26/2025 2:30 PM CDT SUBJECTIVE CHIEF COMPLAINT/REASON FOR VISIT Abnormal Uterine Bleeding PCOS HISTORY OF PRESENT ILLNESS Radha Bueno is a pleasant 39 y.o. who presents to the Division of Gynecology for evaluation of menstrual irregularity. 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 She has a history of PCOS, obesity, hypertension, anxiety, and arthritis. When she was very young, she recalled having very irregular menstrual cycles, often going a year ormore without a cycle lasting into her 20s. She also has noted hirsutism. However, approximately 9 years ago her menstrual cycle become regular, occurring monthly with 7 days of bleeding. In December, shortly after her colposcopy visit with Natalee Huang APRN, CNP for follow-up to VIN3 ( no biopsies obtained during this visit), she had two menstrual periods, one that lasted for 3 weeks with heavy bleeding. However, her menstrual periods have been normal and predictable since. test was negative. She does not desire use of hormones due to attempting fertility. She has been trying for for 4 years, however has not been successful. She has tried ovulation predictor kits in the past, however they never said she ovulated. She was started on Zepbound in June of 2024, however was switched to Ozempic in December of 2023 just prior to onset of irregular bleeding. Imaging: Results for orders placed or performed during the hospital encounter of 01/22/25 US Pelvis Transvaginal and Transabdominal Narrative EXAM: US PELVIS TRANSVAGINAL AND TRANSABDOMINAL COMPARISON: None. TECHNIQUE: Transabdominal and transvaginal. Transvaginal exam performed to better visualize the uterus and/or adnexal regions. FINDINGS: Uterus: 4.1 cm x 5.2 cm x 8.9 cm. Retroverted. Myometrium: Normal. Endometrium: Normal. Thickness: 8 mm. Right ovary: Only seen transabdominally where it appears normal. Ovarian volume: 5 mL. Left ovary: Only seen transabdominally where it appears normal. Ovarian volume: 18 mL. Intraperitoneal Fluid: None. Impression Retroverted uterus with normal endometrial thickness for a premenopausal woman. Limited visualization of the ovaries. 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 02/2024: Pap- NILM, HPV negative 3. On April 23, 2024 she underwent a wide local excision for high-grade vulvar dysplasia with Dr. Adames. Sexually active: Yes STI concerns: No Vulvar/vaginal concerns:No Current contraception:Attempting conception OBJECTIVE PHYSICAL EXAM General: Healthy appearing female in no acute distress. Psych: Appropriate affect. Answers questions appropriately. Pelvic: Deferred IRP Diagnosis Plan 1. Polycystic Ovary Syndrome Antimullerian Hormone (AMH) S-TSH (Thyroid-Stimulating Hormone - Sensitive) Obstetrics and Gynecology - Reproductive endocrinology and infertility consult (clinic) 2. Abnormal Uterine And Vaginal Bleeding Unspecified Radha was seen in Gynecology for evaluation of abnormal uterine bleeding. We reviewed her pelvic ultrasound which was reassuringly normal. Since she had one episode of abnormal bleeding and has since returned to baseline, we discussed continuing to monitor. If she does have a return of irregularities, discussed returning for an endometrial biopsy or short-term use of hormonal medications. We discussed that she may begin to have irregular menstrual cycles with use of GLP-1 due to rapid weight loss and to notify us if irregularities occur again. She has a strong desire for fertility and has been attempting conception for four years. She has never had work-up or labs drawn. We reviewed that PCOS can impact fertility, although it is reassuringthat for the last 9 years she has had regular cycles. Discussed proceeding with a TSH and AMH levelfor further evaluation and referral to [facility] for PCOS discussion with Natalee Lara APRN, BRETT. Total Time: 20 minutes Emily Giron APRN, C.N.P., D.N.P. documented in this encounter Plan of Treatment Upcoming Encounters Date Type Department Care Team (Latest Contact Info) Description 05/16/2025 11:30 AM CDT Clinical Communication Virtual Review in [place], [place] [address] [place] [address] 05/20/2025 8:00 AM CDT Comprehensive Visit Department of Obstetrics and Gynecology in [place], [place] [address] [place] [address] Natalee Lara APRN, C.N.P., M.S. [address] [place] [address] Scheduled Referrals Name Type Priority Associated Diagnoses Order Schedule Obstetrics and Gynecology - Reproductive endocrinology and infertility consult (clinic) Outpatient Referral Routine Polycystic Ovary Syndrome Expected: 03/26/2025, Expires: 06/26/2026 documented as of this encounter Results * S-TSH (Thyroid-Stimulating Hormone - Sensitive) (03/26/2025 3:46 PM CDT) TSH, Sensitive 1.0 0.3 - 4.2 mIU/L 03/26/2025 4:43 PM CDT DTL Blood (Blood, Venous) 03/26/2025 3:46 PM CDT 03/26/2025 3:58 PM CDT Emily Giron APRN, C.N.P., D.N.P. LAB BLOOD ADD-ON Final Result [facility] 200 [place] [address], [facility] 200 [place] [address] * Antimullerian Hormone (AMH) (03/26/2025 3:46 PM CDT) Antimullerian Hormone, S 0.53 0.15 - 7.5 ng/mL 03/27/2025 8:57 AM CDT [facility] Comment: ----ADDITIONAL INFORMATION---- The testing method is an electrochemiluminescence assay manufactured by [employer] and performed on the Van system. Values obtained with different assay methods or kits may be different and cannot be used interchangeably. This test has been modified from the manufacturers instructions. Its performance characteristics were determined by [facility] in a manner consistent with CLIA requirements. This test has not been cleared or approved by the U.S. Food and Drug Administration. Blood (Blood, Venous) 03/26/2025 3:46 PM CDT 03/27/2025 8:02 AM CDT Emily Giron APRN, C.N.P., D.N.P. LAB BLOOD ADD-ON Final Result Performing Organization Address City/State/[facility] Co de Phone Number [facility] [address] [place] [address] [facility] [address] [place] [address] documented in this encounter Visit Diagnoses Diagnosis Polycystic Ovary Syndrome- Primary Abnormal Uterine And Vaginal Bleeding Unspecified documented in this encounter Additional Health Concerns Assessment Noted Time PHQ-9 Depression Total Score: 22 06/ 020 10:35 AM CDT documented as of this encounter Care Teams Paint Roller Cover Machine Setter Relationship Specialty Start Date End Date None Reported, Pcp PCP - General 02/27/23 documented as of this encounter
--- OUTSIDE RECORDS SUMMARY | 2025-03-26 14:30 | XMS_ITS | Encounter Summary ---
Author Organization [facility] Address [address] [place] [address] Care Team Providers Care Graduate Teaching Associate Name Role Phone None Reported, Pcp Primary Care Provider Unavail able Reason for Referral * Outpatient (Routine) - Authorized Specialty Diagnoses / Procedures Referred By Contac t Referred To Contact Obstetrics and Gynecology Diagnoses Polycystic Ovary Syndrome Emily Giron APRN, C.N.P., D.N.P. [address] [place] [phone] Phone: tel: fax: [facility] Referral ID Status Reason Start Date Expiration Date V isits Requested Visits Authorized [id number] Authorized 03/26/2025 09/25/2026 1 1 Scheduling Instructions With Natalee Lara Reason for Visit * Outpatient (Routine) - Closed Specialty Diagnoses / Procedures Referred By Contac t Referred To Contact Obstetrics and Gynecology Diagnoses Menometrorrhagia Natalee Huang APRN, C.N.P. [address] [place] [phone] Phone: tel: fax: [facility] Referral ID Status Reason Start Date Expiration Date Visits Re quested Visits Authorized [id number] Closed 01/23/2025 07/25/2026 1 1 Encounter Details Date Type Department Care Team (Latest Contact Info) Description 03/26/2025 2:30 PM CDT Comprehensive Visit Department of Obstetrics and Gynecology in [place], [place] [address] [place] [address] Emily Giron APRN, C.N.P., D.N.P. 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 02/2024: Pap- [...] AM CDT Clinical Communication Virtual Review in [place], [place] 200 [place] [address] 05/20/2025 8:00 AM CDT Comprehensive Visit Department of Obstetrics and Gynecology in [place], [place] [address] [place] [address] Natalee Lara APRN, C.N.P., M.S. [address] [place] [address] Scheduled Referrals Name Type Priority Associated Diagnoses [...] C.N.P., D.N.P. LAB BLOOD ADD-ON Final Result [facility] [place] 200 [place] [address], [facility] 200 [place] [address] * Antimullerian Hormone (AMH) (03/26/2025 3:46 PM CDT) Antimullerian Hormone, S 0.53 0.15 - 7.5 ng/mL 03/27/2025 8:57 AM CDT [facility] Comment: ----ADDITIONAL INFORMATION---- The testing method is an electrochemiluminescence assay manufactured by [employer] and performed on the Van system. Values obtained with different assay methods or kits may be different and cannot be used interchangeably. This test has been modified from the manufacturers instructions. Its performance characteristics were determined by [facility] in a manner consistent with CLIA requirements. This test has not been cleared or approved by the U.S. Food and Drug Administration. Blood (Blood, Venous) 03/26/2025 3:46 PM CDT 03/27/2025 8:02 AM CDT Emily Giron APRN, C.N.P., D.N.P. LAB BLOOD ADD-ON Final Result Performing Organization Address City/State/[facility] Co de Phone Number [facility] [address] [place] [address] [facility] [address] [place] [address] documented in this encounter Visit Diagnoses Diagnosis Polycystic Ovary Syndrome- Primary Abnormal Uterine And Vaginal Bleeding Unspecified documented in this encounter Additional Health Concerns Assessment Noted Time PHQ-9 Depression Total Score: 22 06/ 020 10:35 AM CDT documented as of this encounter Care Teams Graduate Teaching Associate Relationship Specialty Start Date End Date None Reported, Pcp PCP - General 02/27/23 documented as of this encounter
[2025-04-09 23:28] VITALS: BP 151/87; PULSE 116; RESP 22; TEMP 36.1; O2SAT 98; BMI 42.5
--- OUTSIDE RECORDS SUMMARY | 2025-04-09 23:29 | XMS_ITS | Encounter Summary ---
Author Organization [facility] Address [address] [place] [address] Care Team Providers Care Pole Maker Name Role Phone None Reported, Pcp Primary Care Provider Unavail able Encounter Details Date Type Department Care Team (Latest Contact Info) Description 03/27/2025 Results Follow-Up Department of Obstetrics and Gynecology in [place], [place] [address] [place] [address] Shelley Duarte M.SAddieN., R.N. [address] [place] [address] Antimullerian Hormone (AMH), S-TSH (Thyroid-Stimulating Hormone - Sensitive) Social History Tobacco Use Types Packs/Day Years Used Date Smoking Tobacco: Every Day Cigarettes 0.3 27 Started: 08/21/1998 Smokeless Tobacco: Never Alcohol Use Standard Drinks/Week Comments Not Currently 0 (1 standard drink = 0.6 oz pur e alcohol) occasional [facility] Utilities Answer Date Recorded In the past 12 months has th e [employer], gas, oil, or water [employer] threatened to shut off services in your [...] PM CDT Legal Sex Female 9:48 AM RN ER Gender Identity Female 03/27/2024 9:35 PM CDT Sexual Orientation Bisexual 03/27/2024 9: 35 PM CDT documented as of this encounter Plan of Treatment Upcoming Encounters Date Type Department Care Team (Latest Contact Info) Description 05/16/2025 11:30 AM CDT Clinical Communication Virtual Review in [place], [place] 200 [place] [address] 05/20/2025 8:00 AM CDT Comprehensive Visit Department of Obstetrics and Gynecology in [place], [place] [address] [place] [phone] Natalee Lara, FIELD SCOUT, C.N.P., M.S. [address] [place] [phone] documented as of this encounter Visit Diagnoses Not on filedocumented in this encounter Additional Health Concerns Assessment Noted Time PHQ-9 Depression Total Score: 22 020 10:35 AM CDT documented as of this encounter Care Teams Pole Maker Relationship Specialty Start Date End Date None Reported, Pcp PCP - General 02/27/23 documented as of this encounter
--- OUTSIDE RECORDS SUMMARY | 2025-04-09 23:29 | XMS_ITS | Clinical Summary ---
Author Organization [facility] Address [address] [place] [address] Care Team Providers Care Child Care Supervisor Name Role Phone No Ref-Primary, Physician Primary Care Provider Allergies No known active allergies Medications HYDROcodone-radha taminophen (NORCO) 5-325 MG per tablet Take 1-2 tablets by mouth every 4 hours as needed for moderate to severe pain 12 tablet 09/27/2017 Active Social History Tobacco Use Types Packs/Day Years Used Date Smoking Tobacco: Every Day Cigarettes Alcohol Use Standard Drinks/Week Comments No 0 (1 standard drink = 0.6 oz pur e alcohol) Comments No Sex and Gender Information Value Date Recorded Sex Assigned at Not on file Legal Sex Female 4:15 AM ACOUSTICAL TILE PATTERNMAKER Gender Identity Not on file Sexual Orientation Not on file Last Filed Vital Signs Vital Sign Reading Time Taken Comments Blood Pressure 146/97 09/27/2017 2:45 PM ACOUSTICAL TILE PATTERNMAKER Pulse 91 09/27/2017 2:45 PM ACOUSTICAL TILE PATTERNMAKER Temperature 36.7 C (98 F) 09/27/2017 2:45 PM ACOUSTICAL TILE PATTERNMAKER Respiratory Rate 16 09/27/2017 2:45 PM ACOUSTICAL TILE PATTERNMAKER Oxygen Saturation 100% 09/27/2017 2:45 PM ACOUSTICAL TILE PATTERNMAKER Inhaled Oxygen Concentration - - Weight 127 kg (280 lb) 09/27/2017 2:45 PM ACOUSTICAL TILE PATTERNMAKER Height 172.7 cm (5' 8) 09/27/2017 2:45 PM ACOUSTICAL TILE PATTERNMAKER Body Mass Index 42.57 09/27/2017 2:45 PM ACOUSTICAL TILE PATTERNMAKER Plan of Treatment Not on file Care Teams Child Care Supervisor Relationship Specialty Start Date End Date No Ref-Primary, Physician PCP - General 09/27/17
--- OUTSIDE RECORDS SUMMARY | 2025-04-09 23:29 | XMS_ITS | Clinical Summary ---
Author Organization [facility] Address [address] [place] [address] Care Team Providers Care Licensed Certified Orthotist Name Role Phone Unavailable Primary Care Provider Unavailabl e Source Comments PLEASE NOTE, if this patient is a minor, it may be UNLAWFUL to discuss sensitive information that is contained in these records (such as FAMILY PLANNING, MENTAL HEALTH or SUBSTANCE ABUSE) with the minor patient's parent or other person without the patient's specific authorization.[facility] Allergies Active Allergy Reactions Criticality Noted Date Comments Metformin Diarrhea,Nausea Only 11/20/2014 Medications penicillin V potassium (VEETID) 500 mg tablet 05/30/2023 Activ e HYDROcodone-acetam inophen (NORCO) 5-325 mg per tablet 05/30/2023 Active Active Problems Problem Noted Date Diagnosed Date Hidradenitis suppurativa 12/31/2015 Morbid obesity with body mas s index of 45.0-49.9 in adult ([facility]) 09/18/2015 Hyperlipidemia LDL goal <130 09/18/2015 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 When she came to clinic to get refill and give urine - she refused to do the test and did not tack picker refill. No explanation given. Signed Electronically: Bethel Barrett M.D. . . . 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 Overview (06/01/2023): L1-2 DDD (degenerative disc disease), lumbar 06/25/20 14 Morbid obesity ([facility]) 10/03/2012 Tobacco use disorder 08/24/2010 Cervical dysplasia 08/24/2010 Overview (06/01/2023): 11/19/2009 ASCUS, HPV Positive 01/01/2010: COLP LSIL/SNADY I 07/30: LSIL 08/24/10: colposcopy with SANDY 2-3 09/20/10: LEEP and cone - SANDY 2 with negative margins 07/31: NIL 10/02: ASCUS, HPV Negative 07/2012: NIL 04/10/2014: NIL 03/13/2015: NIL, HPV Negative SANDY II (cervical intraepithelial neoplasia II) 0 08/21/2010 Overview (06/01/2023): s/p LEEP 09/20/2010; needs q6m paps until 2012 Contact dermatitis and other eczema, due to unspecified cause 07/27/2010 Asthma ([facility]) 03/30/2007 Overview (06/01/2023): no meds Allergic rhinitis 03/30/2007 Polycystic ovaries 09/07/2001 Overview (06/01/2023): significant insulin resistence; does not take medications Social History Tobacco Use Types Packs/Day Years Used Date Smoking Tobacco: Every Day Cigarettes Smokeless Tobacco: Never Tobacco Cessation:Ready to Q uit: Not Asked; Counseling Given: Not Answered Social Connections Answer Date Recorded Connectedness 0 05/10/2024 Financial Resource Strain Answer Date R ecorded Financial Resource Strain 0 2019 Stress Answer Date Recorded Stress 0 07/04/2020 Physical Activity Answer Date Recorded Physical Activity 0 07/04/2020 Food Insecurity Answer Date Recorded Food 0 05/16/2024 Transportation Needs Answer Date Record ed Transportation 0 07/04/2020 Housing Stability Answer Date Recorded Housing 0 07/04/2020 Safety and Environment Answer Date Dain rded Safety 0 07/04/2020 Utilities Answer Date Recorded Utilities 0 07/04/2020 Employment Answer Date Recorded Stress 0 05/10/2024 Comments Unknown Sex and Gender Information Value Date Recorded Sex Assigned at Female 06/01/2023 11:35 AM PDT Legal Sex Female 7:49 AM PDT Gender Identity Female 04/19/2019 8:31 AM PDT Sexual Orientation Straight 06/01/2023 11 :35 AM PDT Last Filed Vital Signs Vital Sign Reading Time Taken Comments Blood Pressure 169/99 06/17/2024 1:02 PM CDT Pulse 85 06/17/2024 1:02 PM CDT Temperature - - Respiratory Rate - - Oxygen Saturation - - Inhaled Oxygen Concentration - - Weight - - Height - - Body Mass Index - - Plan of Treatment Health Maintenance Due Date Last Done Comments Anxiety Screening 1986 Dental Prophy 1986 Depression Monitoring 1986 HPV Screening 1986 Pap + HPV 1986 Tobacco Cessation Counseling (#1) 1986 Urine Drug Screen 1986 Relationship Safety Screening/Counseling 2001 Imm-Hepatitis B (2 of 3 - 3- dose series) 05/02/2002 04/04/2002 Cervical Cancer Screening 2007 Pap Smear 2007 Imm-Pneumococcal (2 of 2 - PCV) 12/11/2015 5 Lipid Screening 01/22/2023 01/23/2020 [id number] (2 - season) 2024 021 Alcohol and Drug Screen 08/21/2024 Imm-Influenza (#1) 2025 Diabetes Screening 04/23/2027 04/23/2024, 0 04/23/2024, 01/23/2020, Additional history exists Imm-DTaP/Tdap/Td (4 - Td or Tdap) 01/26/2030 01/27/2020, 11/19/2009, 12/16/1997 HIV Screening Completed 12/13/2010 Hepatitis C Screening Completed 12/13/2010 Cervical Ablation/Cold-Knife Conization Discontinued Cervical Cryotherapy Discontinued Colposcopy Discontinued Endometrial Biopsy Discontinued Excision/Leep Discontinued HPV Genotyping Discontinued Vaginal Pap Discontinued Vulvoscopy Discontinued Insurance [facility] MEDICAID
--- OUTSIDE RECORDS SUMMARY | 2025-04-09 23:29 | XMS_ITS | Encounter Summary ---
Author Organization [facility] Address [address] [place] [id number] Care Team Providers Care Multi Needle Machine Operator Name Role Phone None Reported, Pcp Primary Care Provider Unavail able Reason for Visit * Reason Onset Date Comments Communication 03/19/2025 Encounter Details Date Type Department Care Team (Latest Contact Info) Description 03/19/2025 Clinical Communication Department of Obstetrics and Gynecology, Division of Gynecologic Oncology in [place], [place] [address] [place] [phone] Natalee Huang, SYSTEMS MANAGEMENT CONSULTANT, C.N.P. [address] [place] [phone] Communication Social History Tobacco Use Types Packs/Day Years Used Date Smoking Tobacco: Every Day Cigarettes 0.3 27 Started: 08/21/1998 Smokeless Tobacco: Never Alcohol Use Standard Drinks/Week Comments Not Currently 0 (1 standard drink = 0.6 oz pur e alcohol) occasional [facility] Utilities Answer Date Recorded In the past 12 months has th e [employer], gas, oil, or water [employer] threatened to shut off services in your [...] PM CDT Legal Sex Female 9:48 AM REGULATORY ASSOCIATE Gender Identity Female 03/27/2024 9:35 PM CDT Sexual Orientation Bisexual 03/27/2024 9: 35 PM CDT documented as of this encounter Plan of Treatment Upcoming Encounters Date Type Department Care Team (Latest Contact Info) Description 05/16/2025 11:30 AM CDT Clinical Communication Virtual Review in [place], [place] 200 [place] [address] 05/20/2025 8:00 AM CDT Comprehensive Visit Department of Obstetrics and Gynecology in [place], [place] [address] [place] [phone] Natalee Lara, CARMINE, C.N.P., M.S. [address] [place] [phone] documented as of this encounter Visit Diagnoses Not on filedocumented in this encounter Additional Health Concerns Assessment Noted Time PHQ-9 Depression Total Score: 22 020 10:35 AM CDT documented as of this encounter Care Teams Multi Needle Machine Operator Relationship Specialty Start Date End Date None Reported, Pcp PCP - General 02/27/23 documented as of this encounter
--- OUTSIDE RECORDS SUMMARY | 2025-04-09 23:30 | XMS_ITS | Clinical Summary ---
Author Organization [facility] Address [address] [place] [address] Care Team Providers Care Railroad Operator Name Role Phone None Reported, Pcp Primary Care Provider Unavail able Source Comments Patient records contain information from all sites at [facility]. For routine questions regarding patient records, call [phone] during business hours, M-F 8:00 AM - 5:00 PM Central Time. Record requests for emergency care only can be directed to [phone] at any time.[facility] Allergies Active Allergy Reactions Criticality Noted Date Comments Metformin Other (see comments) 04/12/2024 Upset Stomache Medications * This document contains information received from the source organization and may not represent a complete record from that organization. albuterol inhaler Inhale 2 puffs every 4 (four) hours as needed for wheezing or shortness of breath. 02/03/20 16 Active losartan (Cozaar) 50 mg tablet Take 1 tablet by mouth daily. 04/04/20 24 Active acetaminophen (TylenoL) 500 mg tablet Take 2 tablets (1,000 mg total) by mouth every 6 (six) hours as needed for pain. Alternate with ibuprofen every 3 hours. Do not exceed 4000 mg or 4 g in 24 hours. 04/23/20 24 Active ibuprofen 200 mg tablet Take 3 tablets (600 mg total) by mouth every 6 (six) hours as needed for pain. Alternate with acetaminophen every 3 hours. 04/23/20 24 Active gabapentin (Neurontin) 300 mg capsule TAKE 1 CAPSULE(300 MG) BY MOUTH TWICE DAILY 60 capsule 2 11/13/19 25 Active cholecalcifero l (Vitamin D3) 50 mcg (2,000 Unit) capsule Take 1 capsule by mouth daily. 10/16/19 25 Active LORazepam (Ativan) 2 mg tablet Take 2 mg by mouth as needed. For MRIs 03/18/20 25 Active rosuvastatin (Crestor) 5 mg tablet Take 1 tablet by mouth daily. 02/20/20 25 Active Ozempic 0.25 mg or 0.5 mg (2 mg/3 mL) injection Inject 1 mg under the skin every 7 (seven) days. 01/25/20 25 Active Zepbound 10 mg/0.5 mL injection pen Inject 10 mg under the skin every 7 (seven) days. 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 Other Specified Anxiety Disorders 11/11/2014 Gastroesophageal Reflux Disease Without Esophagi tis 08/28/2014 Other Intervertebral Disc Displacement Lumbar Re gion 06/25/2014 Overview (04/01/2024): L1-2 Degeneration Disc Lumbar 06/25/2014 Dysplasia Cervix 08/24/2010 Overview (04/01/2024): 11/19/2009 ASCUS, HPV Positive 01/01/2010: COLP LSIL/SANDY I 07/30: LSIL 08/24/10: colposcopy with SANDY 2-3 09/20/10: LEEP and cone - SANDY 2 with negative margins 07/31: NIL 10/02: ASCUS, HPV Negative 07/2012: NIL 04/10/2014: NIL 03/13/2015: NIL, HPV Negative Nicotine Dependence Unspecified 08/24/2010 Asthma 03/30/2007 Overview (04/01/2024): no meds Polycystic Ovary Syndrome 09/07/2001 Overview (04/01/2024): significant insulin resistence; does not take medications Resolved Problems Problem Noted Date Diagnosed Date Resolved Date Suicide Ideation 01/21/2020 01/22/2020 Hyperlipidemia 09/18/2015 04/12/2024 Encounters Date Type Department Care Team Description 03/27/2025 Results Follow-Up Department of Obstetrics and Gynecology in [address] [phone] Shelley Duarte M.S.N., R.N. Antimullerian Hormone (AMH), S-TSH (Thyroid-Stimulating Hormone - Sensitive) 03/26/2025 2:30 PM CDT Comprehensive Visit Department of Obstetrics and Gynecology in [place], [place] [address] [place] [phone] Emily Giron APRN, C.N.P., D.N.P. Polycystic Ovary Syndrome (Primary Dx); Abnormal Uterine And Vaginal Bleeding Unspecified 03/24/2025 3:30 PM CDT Clinical Communication Virtual Review in [place], [place] 200 [place] [address] 03/19/2025 Clinical Communication Department of Obstetrics and Gynecology, Division of Gynecologic Oncology in [place], [place] [address] [place] [phone] Natalee Huang APRN, C.N.P. Communication 01/22/2025 3:30 PM CDT - 01/22/2025 11:59 PM CDT Hospital Encounter Department of Radiology, [facility], in [place], [place] [address] [place] [phone] Natalee Huang APRN, C.N.P. Abnormal Uterine And Vaginal Bleeding Unspecified Discharge Disposition: Home or Self Care 01/20/2025 Orders Only Department of Obstetrics and Gynecology, Division of Gynecologic Oncology in [place], [place] [address] [place] [address] Natalee Huang APRN, C.N.P. Abnormal Uterine And Vaginal Bleeding Unspecified (Primary Dx) 01/20/2025 Clinical Communication Department of Obstetrics and Gynecology, Division of Gynecologic Oncology in [place], [place] [address] [place] [address] Clari Adames M.D. from Last 3 Months Immunizations Immunization Administration Dates Next Due 4vHPV (discontinued) 08/03/2012,10/12/2011 HepB Adult 04/04/2002 PPSV23 12/10/2014 SARS-COV-2 (COVID-19) - PFIZ ER (Discontinued)(12 years or older) 2021 Td, (Adult) Unspecified 12/16/1997 Tdap 01/27/2020,11/19/2009 Family History Medical History Relation Name Comments Diabetes Brother 1 César Hypertension Brother 1 César Stroke Brother 1 César ADD Brother 2 Ariel Coronary artery disease Father Darek Leukemia Father's Sister Hd Pancreatic cancer Father's Sister Hd Parkinson disease Father's Sister Hd Coronary artery disease Maternal Grandfather Ryder Dementia Maternal Grandmother Marli Obesity Maternal Grandmother Marli Anxiety disorder Mother Asya Arthritis Mother Asya Clotting disorder Mother Asya Depression Mother Asya Diabetes Mother Asya Hypertension Mother Asya Melanoma Mother Asya Obesity Mother Asya Sleep apnea Mother Asya Alcohol abuse Mother's Brother All 8 brothers Kidney disease Mother's Brother All 8 brothers Leukemia Mother's Brother All 8 brothers Liver disease Mother's Brother All 8 brothers Obesity Mother's Brother All 8 brothers Pancreatic cancer Mother's Brother All 8 brothers Prostate cancer Mother's Brother All 8 brothers Ulcerative colitis Mother's Brother All 8 brothers Breast cancer Mother's Sister 1 Unknown Coronary artery disease Mother's Sister 1 Unknown Dementia Mother's Sister 1 Unknown Hypertension Mother's Sister 1 Unknown Lung cancer Mother's Sister 1 Unknown Ovarian cancer Mother's Sister 1 Unknown Pancreatic cancer Mother's Sister 2 Re Diabetes Mother's Sister 3 All 9 sisters Obesity Mother's Sister 3 All 9 sisters Relation Name Status Comments Brother 1 César Brother 2 Ariel Father Darek Father's Sister Hd Maternal Grandfather Ryder Maternal Grandmother Marli Mother Asya Mother's Brother All 8 brothers Mother's Sister 1 Unknown Mother's Sister 2 Re Mother's Sister 3 All 9 sisters Social History Tobacco Use Types Packs/Day Years Used Date Smoking Tobacco: Every Day Cigarettes 0.3 27 Started: 08/21/1998 Smokeless Tobacco: Never Tobacco Cessation:Ready to Q uit: Not Asked; Counseling Given: Not Answered Alcohol Use Standard Drinks/Week Comments Not Currently 0 (1 standard drink = 0.6 oz pur e alcohol) occasional [facility] Utilities Answer Date Recorded In [...] PM CDT Legal Sex Female 9:48 AM CONTACT CENTER REP Gender Identity Female 03/27/2024 9:35 PM CDT Sexual Orientation Bisexual 03/27/2024 9: 35 PM CDT Last Filed Vital Signs Vital Sign Reading Time Taken Comments Blood Pressure 120/74 04/23/2024 1:11 PM CDT Pulse 77 04/23/2024 1:11 PM CDT Temperature 36.5 C (97.7 F) 04/23/2024 11:22 AM CDT Respiratory Rate 14 04/23/2024 1:11 PM CDT Oxygen Saturation 96% 04/23/2024 1:11 PM CDT Inhaled Oxygen Concentration - - Weight 151 kg (333 lb 12.4 oz) 04/23/2024 6:45 A M CDT Height 168.5 cm (5' 6.34) 04/23/2024 6:45 AM CD T Body Mass Index 53.32 04/23/2024 6:45 AM CDT Plan of Treatment Upcoming Encounters Date Type Department Care Team (Latest Contact Info) Description 05/16/2025 11:30 AM CDT Clinical Communication Virtual Review in [place], [place] 200 [place] [address] 05/20/2025 8:00 AM CDT Comprehensive Visit Department of Obstetrics and Gynecology in [place], [place] [address] [place] [phone] Natalee Lara, CARMINE, C.N.P., M.S. [address] [place] [phone] Health Maintenance Due Date Last Done Comments Depression Monitoring (PHQ-9) 1986 HIV Screening 1986 Hepatitis C Screening 1986 Tobacco Cessation counseling 1986 Hepatitis B Vaccines (2 of 3 - 3-dose series) 05/02/2002 04/04/2002 HPV Vaccines (3 - 3-dose series) 10/26/2012 08/03/2012, 10/12/2011 Pneumococcal vaccine (0-49 years) (2 of 2 - PCV) 12/11/2015 12/10/2014 Creatinine Level (Kidney Function Test) 01/20/2021 01/21/2020 Potassium Level 01/20/2021 01/21/2020 Sodium Level 01/20/2021 01/21/2020 Asthma Action Plan 04/01/2024 Asthma Control Test Questionnaire 04/01/2024 Asthma Management/Exacerbati on Questionnaire (AMQ/AEQ) 04/01/2024 COVID-19 Vaccine (2 - 2023-2 5 season) 2024 2021 Office Visit for Blood Pressure Check / Re-check 07/13/2024 04/12/2024 Depression Monitoring (PHQ-9 for quality tracking) 08/21/2024 Lipid (Cholesterol) Screening 01/22/2025 01/23/2020 Influenza Vaccine (#1) 2025 Cervical/Vaginal Cancer Surveillance (Annual) 12/24/2025 12/24/2024 Cervical/Vaginal Cancer Screening 12/25/2027 12/24/2024, 06/16/2016, 07/27/2010 DTaP,Tdap,and Td Vaccines (4 - Td or Tdap) 01/26/2030 01/27/2020, 11/19/2009, 12/16/1997 Colposcopy Procedure Completed 12/24/2024 IPV Vaccines Aged Out No longer eligi ble based on patient's age to complete this topic Medical Devices Implanted Type Area Livestock Buyer Device Identifier Shelf Expiration Date Model / Serial / Lot Hip Implant Hip Implant Right: Hip Procedures Procedure Name Priority Date/Time Associated Diagnosis Comments THYROID-STIMULATING HORMONE-SENSITIVE (S-TSH) Routine 03/26/2025 3:46 PM CDT Polycystic Ovary Syndrome ANTIMULLERIAN HORMONE (AMH), S Routine 03/26/2025 3:46 PM CDT Polycystic Ovary Syndrome US PELVIS TRANSVAGINAL AND TRANSABDOMINAL RAD - Routine (most inpatients and all outpatients) 01/22/2025 4:39 PM CDT Abnormal Uterine And Vaginal Bleeding Unspecified LA COLPOSCOPY VULVA Routine 12/24/2024 3 :15 PM CDT Moderate Vulvar Dysplasia LIPID PANEL, S Routine 01/23/2020 7:10 AM CDT BASIC METABOLIC PANEL, S/P STAT 01/21/2020 11:03 AM CDT from Last 3 Months or Most Recently Relevant to Health Maintenance Results * Antimullerian Hormone (AMH) (03/26/2025 3:46 PM CDT) Antimullerian Hormone, S 0.53 0.15 - 7.5 ng/mL 03/27/2025 8:57 AM CDT [facility] Comment: ----ADDITIONAL INFORMATION---- The testing method is an electrochemiluminescence assay manufactured by [employer] and performed on the Van system. Values obtained with different assay methods or kits may be different and cannot be used interchangeably. This test has been modified from the manufacturers instructions. Its performance characteristics were determined by [facility] in a manner consistent with CLIA requirements. This test has not been cleared or approved by the U.S. Food and Drug Administration. Blood (Blood, Venous) 03/26/2025 3:46 PM CDT 03/27/2025 8:02 AM CDT Emily Giron APRN C.N.P., D.N.P. LAB BLOOD ADD-ON Final Result Performing Organization Address City/[facility]/ZIP Co de Phone Number [facility] [address] [place] [address] [facility] [address] [place] [address] * S-TSH (Thyroid-Stimulating Hormone - Sensitive) (03/26/2025 3:46 PM CDT) Pathologist [facility] TSH, Sensitive 1.0 0.3 - 4.2 mIU/L 03/26/2025 4:43 PM CDT DT Blood (Blood, Venous) 03/26/2025 3:46 PM CDT 03/26/2025 3:58 PM CDT Emily Giron APRN, C.N.P., D.N.P. LAB BLOOD ADD-ON Final Result Performing Organization Address City/[facility]/ZIP Co de Phone Number [facility] [address] [place] [address], [place] DTL [facility] [address] [place] [address] * US Pelvis Transvaginal and Transabdominal (01/22/2025 4:39 PM CDT) Anatomical Region Laterality Modality Pelvis, Ultrasound RST LOS, Ultrasound ARZ LOS, Ultrasound FLA LOS N/A Ultrasound Impressions 01/22/2025 4:51 PM CDT Retroverted uterus with normal endometrial thickness for a premenopausal woman. Limited visualization of the ovaries. Narrative 01/22/2025 4:51 PM CDT EXAM: US PELVIS TRANSVAGINAL AND TRANSABDOMINAL COMPARISON: [...] Ovarian volume: 18 mL. Intraperitoneal Fluid: None. Procedure Note Benji Tejeda M.D. - 01/22/2025 EXAM: US PELVIS TRANSVAGINAL AND TRANSABDOMINAL COMPARISON: None. TECHNIQUE: Transabdominal and transvaginal. Transvaginal exam performed tobetter visualize the uterus and/or adnexal regions. FINDINGS: Uterus: 4.1 cm x 5.2 cm x 8.9 cm. Retroverted. Myometrium: Normal. Endometrium: Normal. Thickness: 8 mm. Right ovary: Only seen transabdominally where it appears normal. Ovarianvolume: 5 mL. Left ovary: Only seen transabdominally where it appears normal. Ovarianvolume: 18 mL. Intraperitoneal Fluid: None. IMPRESSION: Retroverted uterus with normal endometrial thickness for a premenopausalwoman. Limited visualization of the ovaries. us Natalee Huang APRN, C.N.P. IMG US PROCEDURES Fi nal Result * LA COLPOSCOPY VULVA (12/24/2024 3:15 PM CDT) Narrative [facility] - 12/24/2024 3:15 PM CDNatalee Rowley APRN, C.N.PAddie 12/24/2024 3:58 PM Colposcopy Performed by: Natalee Huang APRN C.N.P. Authorized by: Natalee Huang APRN C.N.PAddie Care team members present 1. Erika Zendejas R.N. 2. Natalee Huang APRN, C.NAddiePAddie PROCEDURE DETAILS Procedure: colposcopy of vulva Acetic Acid applied: yes Acetic Acid strength: 5% Findings: normal colposcopy Patient's tolerance of procedure: patient tolerated the procedure well with no immediate complications CONSENT Consent obtained: verbal Consent given by: patient UN[employer]AL [employer] All relevant documentation and testing were reviewed and available. All required blood products, implants, devices and or special equipment were made available as applicable. Pre-procedure verification was conducted and the correct site was marked if required. A fire risk and smoke assessment were done as applicable. The procedural time-out to verify correct patient, correct side/site, and procedure was conducted prior to performing the procedure and confirmed in a procedural pause. PRE-PROCEDURE DETAILS Assessment - reasonably exclude based on: PREG criteria Procedure purpose: diagnostic Indications: history of NAN POST-PROCEDURE DETAILS Complications: no apparent complications Comments Patient was placed in the dorsal lithotomy position. Visual inspection of the vulva did not reveal any lesions of concern. 5% acetic acid was applied to the entire vulva and allowed to sit for several minutes. Colposcopic evaluation did not reveal any lesions of concern. Incision from prior excision is well healed. No biopsies were obtained today. John Mckeon APRNNAddiePAddie PROCEDURE/MINOR SURG ICAL ORDERABLES Final Result [facility] NA * (ABNORMAL) Lipid Panel (01/23/2020 7:10 AM CDT) Cholesterol, Total 207(H) mg/dL 2019 9:41 AM CDT DTL Comment: ----REFERENCE VALUE---- Desirable: < 200 Borderline high: 200 - 239 High: > or = 240 Triglycerides 225(H) mg/dL 01/23/2020 9:41 AM CDT DTL Comment: ----REFERENCE VALUE---- Normal: <150 Borderline high: 150-199 High: 200-499 Very high: > or =500 Cholesterol, HDL, S 27(L) >=50 mg/dL 01/23/2020 9:41 AM CDT DTL Calculated LDL 135(H) mg/dL 01/23/2020 9:41 AM CDT DTL Comment: ----REFERENCE VALUE---- Desirable: <100 Above Desirable: 100-129 Borderline high: 130-159 High: 160-189 Very high: > or =190 Cholesterol, Non-HDL, Calculated 180(H) mg/dL 01/23/2020 9:41 AM CDT DTL Comment: ----REFERENCE VALUE---- Desirable: <130 Above Desirable: 130-159 Borderline high: 160-189 High: 190-219 Very high: > or =220 Blood (Blood, Venous) 01/23/2020 7:10 AM CDT 01/23/2020 8:44 AM CDT El Evangelista M.D. LAB BLOOD ADD-ON Tawnya l Result [facility] [address] [place] [address], [facility] 200 [place] [address] * (ABNORMAL) Basic Metabolic Panel (01/21/2020 11:03 AM CDT) Potassium, P 4.0 3.6 - 5.2 mmol/L 01/21/2020 11:24 AM CDT CNFL Sodium, P 137 135 - 145 mmol/L 01/21/2020 11:24 AM CDT CNFL Chloride, P 103 98 - 107 mmol/L 01/21/2020 11:24 AM CDT [facility] Bicarbonate, P 23 22 - 29 mmol/L 01/21/2020 11:24 AM CDT [facility] Anion Gap, P 11 7 - 15 01/21/2020 11:24 AM CDT [facility] BUN (Blood Urea Nitrogen), P 12 6 - 21 mg/dL 01/21/2020 11:24 AM CDT [facility] Creatinine 0.71 0.59 - 1.04 mg/dL 01/21/2020 11:24 AM CDT CNFL eGFR-Black/Afri can Dutch >90 >=60 mL/min/BSA 01/21/2020 11:24 AM CDT [facility] Comment: ----ADDITIONAL INFORMATION---- Estimated GFR calculated using the 2009 CKD_EPI creatinine equation. eGFR Non-Black/Afric an Dutch >90 >=60 mL/min/BSA 01/21/2020 11:24 AM CDT [facility] Comment: ----ADDITIONAL INFORMATION---- Estimated GFR calculated using the 2009 CKD_EPI creatinine equation. Calcium, Total, P 8.6 8.6 - 10.0 mg/dL 01/21/2020 11:24 AM CDT [facility] Glucose, P 189(H) 70 - 140 mg/dL 01/21/2020 11:24 AM CDT CN[facility] Blood (Blood, Venous) 01/21/2020 11:03 AM CDT 01/21/2020 11:04 AM CDT Kyle Michaels III, M.D. LAB BLOOD ADD-ON Final Result [facility] [address] [place] [id number], [facility] CNFL [facility] in [address] [address] from Last 3 Months or Most Recently Relevant to Health Maintenance Insurance [facility] [place] [address] [facility] Advance Directives For more information, please contact: [phone] * Full Code (Latest Code Status on File) Date Activated Date Inactivated Comments 04/23/2024 1:45 PM 04/23/2024 4:12 PM Question Answer Comments Full Code: Not Discussed Due to: Patient not available * Full Code Date Activated Date Inactivated Comments 04/23/2024 6:35 AM 04/23/2024 1:45 PM Question Answer Comments Full Code: Discussed * Full Code Date Activated Date Inactivated Comments 01/21/2020 5:26 PM 01/24/2020 3:55 PM Question Answer Comments Full Code: Not Discussed Due to: Not medically appropriate Care Teams Railroad Operator Relationship Specialty Start Date End Date None Reported, Pcp PCP - General 02/27/23
--- OUTSIDE RECORDS SUMMARY | 2025-04-09 23:30 | XMS_ITS | Encounter Summary ---
Author Organization [facility] Address [address] [place] [address] Care Team Providers Care Sales Lead Generator Name Role Phone Unavailable Primary Care Provider Unavailabl e Reason for Visit * Reason Comments Office Visit: Converted Data Conversion Encounter Details Date Type Department Care Team (Late st Contact Info) Description 06/02/2020 Dental Interim Note [facility] [address] [place] [phone] Default, Schs Provider [place] Social History Tobacco Use Types Packs/Day Years Used Date Smoking Tobacco: Never Assessed Social Connections Answer Date Recorded Social Connections and Isolation 0 02/24/2020 Financial Resource Strain Answer Date R ecorded Financial Resource Strain 0 2019 Stress Answer Date Recorded Stress 0 02/24/2020 Physical Activity Answer Date Recorded Physical Activity 0 02/24/2020 Food Insecurity Answer Date Recorded Food 0 02/24/2020 Transportation Needs Answer Date Record ed Transportation 0 02/24/2020 Housing Stability Answer Date Recorded Housing 0 02/24/2020 Safety and Environment Answer Date Dain rded Safety 0 02/24/2020 Utilities Answer Date Recorded Utilities 0 02/24/2020 Employment Answer Date Recorded Employment 0 02/24/2020 Comments Unknown Sex and Gender Information Value Date Recorded Sex Assigned at Female 06/01/2023 11:35 AM PDT Legal Sex Female 7:49 AM PDT Gender Identity Female 04/19/2019 8:31 AM PDT Sexual Orientation Straight 06/01/2023 11 :35 AM PDT documented as of this encounter Plan of Treatment Not on file documented as of this encounter Visit Diagnoses Not on filedocumented in this encounter
--- NOTE | 2025-04-09 23:48 | ED.GENADULT ---
HPI - General Adult General Date Seen: 04/09/25 Chief complaint: Shortness of Breath/Dyspnea Stated complaint: +covid, difficulty breathing Time Seen by Provider: 04/09/25 23:48 History of Present Illness HPI narrative: 40-year-old female with a history of elevated BMI, PCOS, hypertension, asthma, type 2 diabetes presenting to the ER today with difficulty breathing. She is positive for COVID on 2 at home tests. She started to feel sick on Monday morning, 3 days ago with mild sore throat. Since then she has also developed a significant dry cough and fever and chills and body aches. She has also had dry throat and dry mouth. She was seen yesterday in urgent care for this and was diagnosed with a viral syndrome or possibly an asthma exacerbation, although she notes that her lungs were noted to sound clear in the urgent care yesterday. She was given a prescription for prednisone and started taking it yesterday. Today she did 2 at home COVID tests in the were both positive. Because of the positive COVID test she came here to the ER tonight. She has cough as well as some chest congestion, dry mouth. She is feeling fatigued. She has a history of diabetes but is not on any insulin. She is on semaglutide. She has a history of hypertension on losartan. She is on rosuvastatin for cholesterol. Related Data Home Medications ?Medication ?Instructions ?Recorded ?Confirmed gabapentin 300 mg capsule 300 mg PO BID 06/26/24 04/08/25 semaglutide 1 mg/dose (4 mg/3 mL) 1 mg subcut QWEEK 02/28/25 04/08/25 subcutaneous pen injector (Ozempic) Previous Rx's ?Medication ?Instructions ?Recorded cholecalciferol (vitamin D3) 50 50 mcg PO QDAY 90 days #90 caps 07/01/24 mcg (2,000 unit) capsule blood pressure kit-extra large #1 ea 10/02/24 losartan 50 mg tablet 50 mg PO QDAY 90 days #90 tabs 12/05/24 albuterol sulfate 90 mcg/actuation 2 puff inhalation Q6H PRN 02/10/25 aerosol inhaler shortness of breath or wheezing #8.5 grams rosuvastatin 5 mg tablet 5 mg PO QDAY #90 tabs 02/19/25 cyclobenzaprine 10 mg tablet 10 mg PO TID PRN muscle spasm #30 03/31/25 tabs prednisone 20 mg tablet 40 mg (2 x 20 mg) PO QDAY 5 days 04/08/25 #10 tabs nirmatrelvir 300 mg (150 mg See Rx Instructions PO .COMPLEX 04/10/25 x2)-ritonavir 100 mg tablet,dose #30 ea pack (Paxlovid) Allergies Allergy/AdvReac Type Severity Reaction Status Date / Time metformin Allergy Gastrointestinal Verified 04/08/25 15:40 Upset [facility] Medical History Tear of right biceps muscle ?S46.211A - Strain of muscle, fascia and tendon of other parts of biceps, right arm, initial encounter (ICD-10) Dyslipidemia ?E78.5 - Hyperlipidemia, unspecified (ICD-10) Type 2 diabetes mellitus (03/2024) ?E11.9 - Type 2 diabetes mellitus without complications (ICD-10) 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 ?M23.301 - Other meniscus derangements, unspecified lateral meniscus, left knee (ICD-10) Prepatellar bursitis of right knee ?M70.41 - Prepatellar bursitis, right knee (ICD-10) Polycystic ovary syndrome ?E28.2 - Polycystic ovarian syndrome (ICD-10) Morbid obesity with body mass index (BMI) of 50.0 to 59.9 in adult (10/03/12) ?E66.01 - Morbid (severe) obesity due to excess calories (ICD-10) ?Z68.43 - Body mass index [BMI] 50.0-59.9, adult (ICD-10) Migraine headache ?G43.909 - Migraine, unspecified, not intractable, without status migrainosus (ICD-10) Hypertension (08/28/14) ?I10 - Essential (primary) hypertension (ICD-10) Hidradenitis suppurativa (12/31/15) ?L73.2 - Hidradenitis suppurativa (ICD-10) Herniated lumbar intervertebral disc (06/25/14) ?M51.26 - Other intervertebral disc displacement, lumbar region (ICD-10) Gastroesophageal reflux disease without esophagitis (08/28/14) ?K21.9 - Gastro-esophageal reflux disease without esophagitis (ICD-10) Dysfunctional uterine bleeding ?N93.8 - Other specified abnormal uterine and vaginal bleeding (ICD-10) Degeneration of intervertebral disc of lumbar region (06/25/14) ?M51.36 - Other intervertebral disc degeneration, lumbar region (ICD-10) Anxiety and depression ?F41.9 - Anxiety disorder, unspecified (ICD-10) ?F32.A - Depression, unspecified (ICD-10) Surgical History Hx of local excision of skin lesion (04/2024) ?Z98.890 - Other specified postprocedural states (ICD-10) History of loop electrical excision procedure (LEEP) ?Z98.890 - Other specified postprocedural states (ICD-10) Status post lateral meniscectomy of left knee (10/21/16) ?Z98.890 - Other specified postprocedural states (ICD-10) History of carpal tunnel surgery of left wrist (01/05/16) ?Z98.890 - Other specified postprocedural states (ICD-10) History of total right hip replacement (12/08/14) ?Z96.641 - Presence of right artificial hip joint (ICD-10) History of dilation and curettage (2010) ?Z98.890 - Other specified postprocedural states (ICD-10) Family History Mother Diabetes Depression Anxiety Maternal Grandmother Diabetes Ovarian cancer Aunt Breast cancer, Onset Age: 40 Diabetes Uncle Colorectal cancer, Onset Age: 47 Paternal Grandmother Pancreatic cancer Other Skin cancer Social 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, 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, 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 Alert. Conversant. Non toxic. HENT: Head: Atraumatic. Nose: Nose normal. Mouth/Throat: No trismus. No stridor. Wearing a mask during exam. Eyes: Conjunctivae normal. EOM normal. Pupils equal, round, and reactive to light. No scleral icterus. Neck: Normal range of motion. Neck supple. No tracheal deviation present. No JVD Cardiovascular: Normal rate, regular rhythm. No gallop. No friction rub. No murmur heard. Symmetric radial artery pulses Pulmonary/Chest: Effort normal. No stridor. No respiratory distress. No wheezes. No rales. No rhonchi . No tenderness. Abdominal: Soft.. No distension. No mass. No tenderness. No rebound. No guarding. Musculoskeletal: RUE: Normal range of motion. No tenderness. No deformity LUE: Normal range of motion. No tenderness. No deformity RLE: Normal range of motion. No edema. No tenderness. No deformity LLE: Normal range of motion. No edema. No tenderness. No deformity Lymph: No cervical adenopathy. Neurological: Alert and oriented to person, place, and time. Normal strength. CN II-VII intact. No sensory deficit. GCS eye subscore is 4. GCS verbal subscore is 5. GCS motor subscore is 6. Normal coordination Skin: Skin is warm and dry. No rash noted. No pallor. Normal capillary refill. Psychiatric: Normal mood. Very polite but mildly anxious. Const: Vital Signs, click to edit/add: Vital Signs - 24 hr 04/09/25 23:28 Temperature 97.0 F L Pulse Rate [Left P ulse Oximeter] 116 H Respiratory Rate 22 Blood Pressure [Ri ght Upper Arm] 151/87 H Pulse Oximetry 98 Oxygen Delivery Me thod Room Air Course Vital Signs Vital signs: Initial Vital Signs Temperature 97.0 F L 04/09/25 23:28 Temperature Source Temporal Artery Scan 04/09/25 23:28 Pulse Rate 116 H 04/09/25 23:28 Respiratory Rate 22 04/09/25 23:28 Blood Pressure 151/87 H 04/09/25 23:28 Blood Pressure Mean 108 H 04/09/25 23:28 Blood Pressure Position Sitting 04/09/25 23:28 Pulse Oximetry 98 04/09/25 23:28 Oxygen Delivery Method Room Air 04/09/25 23:28 Vital Signs Temperature 97.0 F L 04/09/25 23:28 Pulse Rate 116 H 04/09/25 23:28 Respiratory Rate 22 04/09/25 23:28 Blood Pressure 151/87 H 04/09/25 23:28 Pulse Oximetry 98 04/09/25 23:28 Oxygen Delivery Method Room Air 04/09/25 23:28 Temperature 97.0 F L 04/09/25 23:28 Pulse Rate 116 H 04/09/25 23:28 Respiratory Rate 22 04/09/25 23:28 Blood Pressure 151/87 H 04/09/25 23:28 Pulse Oximetry 98 04/09/25 23:28 Oxygen Delivery Method Room Air 04/09/25 23:28 Medical Decision Making MDM Narrative Medical decision making narrative: This patient presents for evaluation of cough, chest congestion, fatigue, chills ongoing for 3 days. She is positive with 2 at home COVID tests. Suspect that her symptoms are likely related to her current coronavirus infection. 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 There is no signs at this point of serious bacterial infection such as OM, RPA, epiglottitis, CARDIOLOGY TECHNOLOGIST, strep pharyngitis, pneumonia, sinusitis, meningitis, bacteremia, serious bacterial infection. Given clear lungs, fever curve, no hypoxia and no respiratory distress I do not feel a CXR is indicated at this point as the probability of bacterial pneumonia is very unlikely. There are no significant gastrointestinal symptoms at this point and no signs of dehydration. Close followup with primary care physician is indicated. Return to ED for fever > 103, protracted vomiting, confusion, or other worsening. EKG shows sinus rhythm and no sign of ischemia or pericarditis. She has had dry mouth for the past couple of days. Blood sugar is elevated at 197. It turns out she was started on prednisone yesterday. I would advise for her to stop that steroid since his last likely to give her any benefit in the outpatient setting for coronavirus. She agrees. Given the patient's high risk medical conditions including asthma, diabetes, elevated BMI, she is considered to be in a ?high risk? category for severe COVID. Will start the patient on Paxlovid. She will have to the hold rosuvastatin while on Paxlovid. Discussed the risk for worsening and precautions for return to the ER. Patient is in agreement. Lab Data Labs: Lab Results 04/10/25 Range/Units 00:10 POC Glucose 197 H (60-115) mg/dl ECG Data Attestation: I personally reviewed and interpreted this ECG as follows: Interpretation: Normal sinus rhythm Rate 95 IL interval 126 Normal QRS axis No ST segment elevation or depression QTC 442 Discharge Plan Discharge Clinical Impression: COVID-19 Patient Disposition: Home, Self-Care Condition: Stable Instructions: COVID-19 (Coronavirus Disease 2019) (ED) Additional Instructions: As we discussed, right now your oxygen level is very good in your vital signs are okay. We suspect that your symptoms are related to coronavirus infection. Take care for yourself, be sure to drink plenty of fluids and stay hydrated. Rest and stay home from work until your symptoms are improving in you have been afebrile for more than 24 hours. I recommend he start on Paxlovid tomorrow morning to help prevent your coronavirus infection from getting worse. Paxlovid is an antiviral that you have to take twice daily for 5 days. Paxlovid does interact with your cholesterol medication (rosuvastatin). While you are on Paxlovid you should not take rosuvastatin. If you have worsening trouble breathing, chest pain, high fever, weakness, or if you measure oxygen levels less than 90%, please return to the ER right away to be rechecked. Prescriptions: New Paxlovid 300 mg (150 mg x 2)-100 mg tablets,dose pack See Rx Instructions .ROUTE .COMPLEX Qty: 30 0RF Rx Instructions: take TWO 150 mg tablets of nirmatrelvir with ONE 100 mg tablet of ritonavir twice daily for 5 days No Action losartan 50 mg tablet 50 mg PO QDAY 90 Days Qty: 90 1RF gabapentin 300 mg capsule 300 mg PO BID prednisone 20 mg tablet 40 mg PO QDAY 5 Days Qty: 10 0RF cholecalciferol (vitamin D3) 50 mcg (2,000 unit) capsule 50 mcg PO QDAY 90 Days Qty: 90 3RF (DME) blood pressure kit-extra large Kit See Rx Instructions .Route Qty: 1 0RF Rx Instructions: Please check blood pressure 3-4 times per week; or if you ever feel lightheaded or dizzy after starting new blood pressure medication. albuterol sulfate 90 mcg/actuation HFA aerosol inhaler 2 puff inhalation Q6H PRN (Reason: shortness of breath or wheezing) Qty: 8.5 1RF rosuvastatin 5 mg tablet 5 mg PO QDAY Qty: 90 3RF Ozempic 1 mg/dose (4 mg/3 mL) pen injector 1 mg subcut QWEEK cyclobenzaprine 10 mg tablet 10 mg PO TID PRN (Reason: muscle spasm) Qty: 30 0RF Follow Up/Referrals: Morenita Ulrich MD [Primary Care Provider, Family Practice] Stand Alone Forms: [employer] Info Instructions
[2025-04-10 00:13] LABS: Glucose, Point-of-Care* 197 mg/dl (60-115)
--- OUTSIDE RECORDS SUMMARY | 2025-04-10 00:31 | XMS_ITS | Encounter Summary ---
Author Organization [facility] Address [address] [place] [id number] Care Team Providers Care Cranberry Farm Supervisor Name Role Phone None Reported, Pcp Primary Care Provider Unavail able Reason for Visit * Reason Onset Date Comments Communication 03/19/2025 Encounter Details Date Type Department Care Team (Latest Contact Info) Description 03/19/2025 Clinical Communication Department of Obstetrics and Gynecology, Division of Gynecologic Oncology in [place], [place] [address] [place] [phone] Natalee Huang, VP COMMUNICATIONS, C.N.P. 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 [address] [place] [phone] documented as of this encounter Visit Diagnoses Not on filedocumented in this encounter Additional Health Concerns Assessment Noted Time PHQ-9 Depression Total Score: 22 020 10:35 AM CDT documented as of this encounter Care Teams Cranberry Farm Supervisor Relationship Specialty Start Date End Date None Reported, Pcp PCP - General 02/27/23 documented as of this encounter
--- OUTSIDE RECORDS SUMMARY | 2025-04-10 00:31 | XMS_ITS | Clinical Summary ---
Author Organization [facility] Address [address] [place] [address] Care Team Providers Care Cap Maker Name Role Phone Unavailable Primary Care Provider [...] mas s index of 45.0-49.9 in adult ([facility]) 09/18/2015 Hyperlipidemia LDL goal <130 09/18/2015 Hyperinsulinemia [...] to do the test and did not package pick up refill. No explanation given. Signed Electronically: Bethel Barrett M.D. . . . 9:50 AM 01/14/2015 Anxiety associated with depression 11/11/2014 Acetabular dysplasia ([facility]) 11/11/2014 Overview (06/01/2023): Anterior/superior labral tear, right Cam femoral acetabular impingement right hip HTN (hypertension) 08/28/2014 Gastroesophageal reflux disease without esophagi tis 08/28/2014 Lumbar disc herniation 06/25/2014 Overview (06/01/2023): L1-2 DDD (degenerative disc disease), lumbar 06/25/20 14 Morbid obesity ([facility]) 10/03/2012 Tobacco use disorder 08/24/2010 Cervical dysplasia 08/24/2010 Overview (06/01/2023): 11/19/2009 ASCUS, HPV Positive 01/01/2010: COLP LSIL/SANDY [...] eczema, due to unspecified cause 07/27/2010 Asthma ([facility]) 03/30/2007 Overview (06/01/2023): no meds Allergic rhinitis [...] PCV) 12/11/2015 5 Lipid Screening 01/22/2023 01/23/2020 [id number] (2 - season) 2024 021 Alcohol and [...] Discontinued Vaginal Pap Discontinued Vulvoscopy Discontinued Insurance [facility] MEDICAID
--- OUTSIDE RECORDS SUMMARY | 2025-04-10 00:31 | XMS_ITS | Clinical Summary ---
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 Gender Identity Not on file Sexual Orientation Not on file Last Filed Vital Signs Vital Sign Reading Time Taken Comments Blood Pressure 146/97 09/27/2017 2:45 PM SEISMIC PROSPECTING OBSERVER Pulse 91 09/27/2017 2:45 PM SEISMIC PROSPECTING OBSERVER Temperature 36.7 C (98 F) 09/27/2017 2:45 PM SEISMIC PROSPECTING OBSERVER Respiratory Rate 16 09/27/2017 2:45 PM SEISMIC PROSPECTING OBSERVER Oxygen Saturation 100% 09/27/2017 2:45 PM SEISMIC PROSPECTING OBSERVER Inhaled Oxygen Concentration - - Weight 127 kg (280 lb) 09/27/2017 2:45 PM SEISMIC PROSPECTING OBSERVER Height 172.7 cm (5' 8) 09/27/2017 2:45 PM SEISMIC PROSPECTING OBSERVER Body Mass Index 42.57 09/27/2017 2:45 PM SEISMIC PROSPECTING OBSERVER Plan of Treatment Not on file Care Teams Hammerer Relationship Specialty Start Date End Date No Ref-Primary, Physician PCP - General 09/27/17
--- OUTSIDE RECORDS SUMMARY | 2025-04-10 00:31 | XMS_ITS | Encounter Summary ---
Author Organization [facility] Address [address] [place] [address] Care Team Providers Care Mirror Department Supervisor Name Role Phone Unavailable Primary Care Provider Unavailabl e Reason for Visit * Reason Comments Office Visit: Converted Data Conversion Encounter Details Date Type Department Care Team (Late st Contact Info) Description 06/02/2020 Dental Interim Note [facility] [address] [place] [phone] Default, Schs Provider [place] Social History [...]
--- OUTSIDE RECORDS SUMMARY | 2025-04-10 00:31 | XMS_ITS | Encounter Summary ---
Author Organization [facility] Address [address] [place] [phone] Care Team Providers Care Commercial Carpenter Name Role Phone None Reported, Pcp Primary Care Provider Unavail able Encounter Details Date Type Department Care Team (Latest Contact Info) Description 03/27/2025 Results Follow-Up Department of Obstetrics and Gynecology in [place], [place] [address] [place] [phone] Shelley Duarte M.SAddieN., R.N. 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 [address] [place] [phone] documented as of this encounter Visit Diagnoses Not on filedocumented in this encounter Additional Health Concerns Assessment Noted Time PHQ-9 Depression Total Score: 22 020 10:35 AM CDT documented as of this encounter Care Teams Commercial Carpenter Relationship Specialty Start Date End Date None Reported, Pcp PCP - General 02/27/23 documented as of this encounter
--- OUTSIDE RECORDS SUMMARY | 2025-04-10 00:31 | XMS_ITS | Clinical Summary ---
Author Organization [facility] Address [address] [place] [address] Care Team Providers Care Area Director Name Role Phone None Reported, Pcp Primary Care Provider Unavail able Source Comments Patient records contain information from all sites at [facility]. For routine questions regarding patient records, call [phone] during business hours, M-F 8:00 AM - 5:00 PM Central Time. Record requests for emergency care only can be directed to [phone] at any time.[facility] Allergies Active Allergy Reactions Criticality Noted Date [...] Follow-Up Department of Obstetrics and Gynecology in [address] [phone] Shelley Duarte M.S.N., R.N. Antimullerian Hormone (AMH), S-TSH (Thyroid-Stimulating Hormone - Sensitive) 03/26/2025 2:30 PM CDT Comprehensive Visit Department of Obstetrics and Gynecology in [place], [place] [address] [place] [phone] Emily Giron APRN, C.N.P., D.N.P. Polycystic Ovary Syndrome (Primary Dx); Abnormal Uterine And Vaginal Bleeding Unspecified 03/24/2025 3:30 PM CDT Clinical Communication Virtual Review in [place], [place] [address] [place] [address] 03/19/2025 Clinical Communication Department of Obstetrics and Gynecology, Division of Gynecologic Oncology in [place], [place] [address] [place] [phone] Natalee Huang APRN, C.N.P. Communication 01/22/2025 3:30 PM CDT - 01/22/2025 11:59 PM CDT Hospital Encounter Department of Radiology, [facility], in [place], [place] [address] [place] [phone] Natalee Huang APRN, C.N.P. Abnormal Uterine And Vaginal Bleeding Unspecified Discharge Disposition: Home or Self Care 01/20/2025 Orders Only Department of Obstetrics and Gynecology, Division of Gynecologic Oncology in [place], [place] [address] [place] [address] Natalee Huang APRN, C.N.P. Abnormal Uterine And Vaginal Bleeding Unspecified (Primary Dx) 01/20/2025 Clinical Communication Department of Obstetrics and Gynecology, Division of Gynecologic Oncology in [place], [place] [address] [place] [address] Clari Adames M.D. 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 Comment: ----ADDITIONAL INFORMATION---- The testing method is an electrochemiluminescence assay manufactured by [employer] and performed on the Van system. Values obtained with different assay methods or kits may be different and cannot be used interchangeably. This test has been modified from the manufacturers instructions. Its performance characteristics were determined by [facility] in a manner consistent with CLIA requirements. This test has not been cleared or approved by the U.S. Food and Drug Administration. Blood (Blood, Venous) 03/26/2025 3:46 PM CDT 03/27/2025 8:02 AM CDT Emily Giron APRN C.N.P., D.N.P. LAB BLOOD ADD-ON Final Result Performing Organization Address City/[facility]/ZIP Co de Phone Number [facility] [address] [place] [address] [facility] [address] [place] [address] * S-TSH (Thyroid-Stimulating Hormone - Sensitive) (03/26/2025 3:46 PM CDT) Pathologist [facility] TSH, Sensitive 1.0 0.3 - 4.2 mIU/L 03/26/2025 4:43 PM CDT DT Blood (Blood, Venous) 03/26/2025 3:46 PM CDT 03/26/2025 3:58 PM CDT Emily Giron APRN, C.N.P., D.N.P. LAB BLOOD ADD-ON Final Result Performing Organization Address City/[facility]/ZIP Co de Phone Number [facility] [address] [place] [address], [place] D[facility] [address] [place] [address] * US Pelvis Transvaginal and Transabdominal (01/22/2025 [...] IMG US PROCEDURES Fi nal Result * IA COLPOSCOPY VULVA (12/24/2024 3:15 PM CDT) Narrative [...] M.D. LAB BLOOD ADD-ON Tawnya l Result [facility] [address] [place] [address], [facility] [address] [place] [address] * (ABNORMAL) Basic Metabolic Panel (01/21/2020 11:03 [...] 01/21/2020 11:24 AM CDT [facility] eGFR-Black/Afri can Argentine >90 >=60 mL/min/BSA 01/21/2020 11:24 AM CDT [facility] Comment: ----ADDITIONAL INFORMATION---- Estimated GFR calculated using the 2009 CKD_EPI creatinine equation. eGFR Non-Black/Afric an Argentine >90 >=60 mL/min/BSA 01/21/2020 11:24 AM CDT [...] III, M.D. LAB BLOOD ADD-ON Final Result [facility] [address] [place] [phone], [facility] CNFL [facility] in [address] [address] from Last 3 Months or Most Recently Relevant to Health Maintenance Insurance [facility] [place] [address] [facility] Advance Directives For more information, please contact: [phone] * Full Code (Latest Code Status on [...] Due to: Not medically appropriate Care Teams Area Director Relationship Specialty Start Date End Date None Reported, Pcp PCP - General 02/27/23
== END 2025-04-10 00:38 | disposition home or self-care (01) ==
PROVIDERS: Emergency Provider Emergency Medicine; PCP Family Medicine
DX: U07.1 COVID-19 (principal)
CPT/HCPCS: 36415; 82947; 99282; 99283

== ENCOUNTER 2025-05-26 07:53 | Outpatient (CLI) | payer MEDICAID, SELFPAY | END 2025-05-26 07:54 | disposition home or self-care (01) | LOC: NFLDREF 05-27 12:58 | PROVIDERS: PCP Family Medicine; Referring Provider Family Medicine; Visit Provider Family Medicine | DX: I10 Essential (primary) hypertension (principal); E55.9 Vitamin D deficiency, unspecified; E78.5 Hyperlipidemia, unspecified; E11.40 Type 2 diabetes mellitus with diabetic neuropathy, unspecified | CPT/HCPCS: 80053; 80061; 82043; 82306; 82570 ==

== ENCOUNTER 2025-06-11 08:36 | Outpatient (CLI) | payer MEDICAID, SELFPAY | END 2025-06-11 08:37 | disposition home or self-care (01) | LOC: WOUND 08:36 | PROVIDERS: PCP Family Medicine; Visit Provider Nurse Practitioner Family | DX: S81.811A Laceration without foreign body, right lower leg, initial encounter (principal); E11.9 Type 2 diabetes mellitus without complications; Z72.0 Tobacco use | CPT/HCPCS: 97597; G0463 ==

== ENCOUNTER 2025-06-19 13:58 | Outpatient (CLI) | payer MEDICAID, SELFPAY | END 2025-06-19 13:59 | disposition home or self-care (01) | LOC: WOUND 13:58 | PROVIDERS: PCP Family Medicine; Visit Provider Nurse Practitioner Family | DX: S81.811A Laceration without foreign body, right lower leg, initial encounter (principal); W06.XXXA Fall from bed, initial encounter; E11.9 Type 2 diabetes mellitus without complications; Z72.0 Tobacco use | CPT/HCPCS: 97597 ==

== ENCOUNTER 2025-06-26 14:21 | Outpatient (CLI) | payer MEDICAID, SELFPAY | END 2025-06-26 14:22 | disposition home or self-care (01) | LOC: WOUND 14:21 | PROVIDERS: PCP Family Medicine; Visit Provider Nurse Practitioner Family | DX: S81.811D Laceration without foreign body, right lower leg, subsequent encounter (principal); W06.XXXD Fall from bed, subsequent encounter; E11.9 Type 2 diabetes mellitus without complications; Z72.0 Tobacco use | CPT/HCPCS: 97597 ==

== ENCOUNTER 2025-07-03 13:27 | Outpatient (CLI) | payer MEDICAID, SELFPAY | END 2025-07-03 13:28 | disposition home or self-care (01) | LOC: WOUND 13:28 | PROVIDERS: PCP Family Medicine; Visit Provider Nurse Practitioner Family | DX: S81.811A Laceration without foreign body, right lower leg, initial encounter (principal); W06.XXXA Fall from bed, initial encounter; E11.9 Type 2 diabetes mellitus without complications; Z79.85 Long-term (current) use of injectable non-insulin antidiabetic drugs | CPT/HCPCS: 11042 ==

== ENCOUNTER 2025-07-10 11:02 | Outpatient (CLI) | payer MEDICAID, SELFPAY | END 2025-07-10 11:03 | disposition home or self-care (01) | LOC: WOUND 11:02 | PROVIDERS: PCP Family Medicine; Visit Provider Nurse Practitioner Family | DX: S81.811A Laceration without foreign body, right lower leg, initial encounter (principal); W06.XXXA Fall from bed, initial encounter; E11.9 Type 2 diabetes mellitus without complications; Z79.85 Long-term (current) use of injectable non-insulin antidiabetic drugs; Z72.0 Tobacco use | CPT/HCPCS: 11042 ==

== ENCOUNTER 2025-07-15 14:28 | Outpatient (CLI) | payer MEDICAID, SELFPAY | END 2025-07-15 14:29 | disposition home or self-care (01) | LOC: WOUND 14:28 | PROVIDERS: PCP Family Medicine; Visit Provider Nurse Practitioner Family | DX: S81.811A Laceration without foreign body, right lower leg, initial encounter (principal); W06.XXXA Fall from bed, initial encounter; E11.9 Type 2 diabetes mellitus without complications; F17.210 Nicotine dependence, cigarettes, uncomplicated; Z79.85 Long-term (current) use of injectable non-insulin antidiabetic drugs | CPT/HCPCS: 11042 ==

== ENCOUNTER 2025-07-24 08:29 | Outpatient (CLI) | payer MEDICAID, SELFPAY | END 2025-07-24 08:30 | disposition home or self-care (01) | LOC: NFLDREF 08:30 | PROVIDERS: PCP Family Medicine; Visit Provider Family Medicine | DX: Z01.818 Encounter for other preprocedural examination (principal); I10 Essential (primary) hypertension | CPT/HCPCS: 80048 ==

== ENCOUNTER 2025-07-24 10:19 | Outpatient (CLI) | payer MEDICAID, SELFPAY | END 2025-07-24 10:20 | disposition home or self-care (01) | LOC: WOUND 10:20 | PROVIDERS: PCP Family Medicine; Visit Provider Nurse Practitioner Family | DX: S81.811A Laceration without foreign body, right lower leg, initial encounter (principal); E11.9 Type 2 diabetes mellitus without complications; I10 Essential (primary) hypertension; Z72.0 Tobacco use | CPT/HCPCS: 11042 ==